=== PATIENT | female | born 1935 | race Caucasian/White ===

== ENCOUNTER 2016-04-03 04:00 | Emergency (ER) | payer MEDICARE ==
[2016-04-03] MEDS ORDERED: PANTOPRAZOLE 40MG INJ (PROTONIX) (C9113) As Ordered ONE (04:31)
[2016-04-03] MEDS ORDERED: ASPIRIN 81 MG CHEW TABLET As Ordered ONE (04:31)
[2016-04-03 04:39] LABS: BASO % 0.5 % (0.0-1.0); EOS # 0.1 K/mm3 (0.0-0.50); LARGE UNSTAINED CELL # 0.1 K/mm3 (0.0-0.4); LARGE UNSTAINED CELL % 2.1 % (0.0-4.0); LYMPH # 2.1 K/mm3 (1.5-4.5); LYMPH % 34.4 % (24.0-44.0); MEAN CORPUSCULAR HEMOGLOBIN 31.3 pg (27.0-33.0); MEAN CORPUSCULAR HGB CONC 32.9 g/dl (32.0-36.5); MEAN CORPUSCULAR VOLUME 95.1 fl (80.0-96.0); MONO # 0.3 K/mm3 (0.0-0.8); MONO % 5.8 % (0.0-5.0); NEUTROPHILS # 3.2 K/mm3 (1.8-7.7); NEUTROPHILS % 55.2 % (36.0-66.0); PLATELET COUNT, AUTOMATED 308 k/mm3 (150-450); RED CELL DISTRIBUTION WIDTH 13.1 % (11.5-14.5); WHITE BLOOD COUNT 5.8 K/mm3 (4.0-10.0)
[2016-04-03 05:09] LABS: ALBUMIN 3.5 GM/DL (3.2-5.2); ALBUMIN/GLOBULIN RATIO 1.25 (1.00-1.93); ALKALINE PHOSPHATASE 60 U/L (45-117); ALT/SGPT 20 U/L (12-78); ANION GAP 11 MEQ/L (8-16); AST/SGOT 14 U/L (15-37); BILIRUBIN,DIRECT < 0.1 MG/DL (0.0-0.2); BILIRUBIN,TOTAL 0.3 MG/DL (0.2-1.0); BLOOD UREA NITROGEN 20 MG/DL (7-18); CALCIUM LEVEL 9.2 MG/DL (8.8-10.2); CARBON DIOXIDE LEVEL 25 MEQ/L (21-32); CHLORIDE LEVEL 108 MEQ/L (98-107); CREATININE FOR GFR 0.81 MG/DL (0.55-1.02); GLOMERULAR FILTRATION RATE > 60.0 (>32); GLUCOSE, FASTING 117 MG/DL (83-110); POTASSIUM SERUM 4.1 MEQ/L (3.5-5.1); SODIUM LEVEL 144 MEQ/L (136-145); TOTAL PROTEIN 6.3 GM/DL (6.4-8.2)
--- NOTE | 2016-04-03 07:43 | REP ---
Clinical: Chest pain . Comparison: 03/30/2016 . Findings: The mediastinum and cardiac silhouette are stable and within normal limits for portable technique. The lung phan are clear without acute consolidation, effusion, or pneumothorax. Skeletal structures are intact. Impression: Normal portable chest x-ray Signed by Kalpesh Montero MD 04/03/2016 07:35 A
--- NOTE | 2016-04-03 07:43 | EDDOCDS ---
Nurse's Notes [facility] Name: Jayna Granado Age: 81 yrs Sex: Female : 1935 Arrival Date: 04/03/2016 Time: 04:00 Bed 9 Private MD: Diagnosis: Chest pain, unspecified Presentation: 04/03 04:19 Presenting complaint: Patient states: burning started a couple hours ago in upper left ko2 chest and throat area. Pt states that she fell back to sleep and when she woke up the burning was still there so she came into the ED. Pt states that she has some tingling down left arm. Aspirin was not taken prior to arrival. Suicide/Homicide risk assessment- the patient denies having any suicidal and/or homicidal ideations and does not present with any other emotional, behavioral or mental health complaints. Status: Patient is not a general service officer or dependent. Transition of care: patient was not received from another setting of care. 04:19 Acuity: LESVIA Level 3 ko2 04:19 Method Of Arrival: Walkin/Carried/Asstd ko2 04:29 Adult Sepsis Screening: The patient does not have new or worsening altered mentation. ko2 Patient's respiratory rate is less than 22. Systolic blood pressure is greater than 100. Patient has a qSOFA score of 0- Negative Sepsis Screen. Triage Assessment: 04:22 General: Appears in no apparent distress, Behavior is appropriate for age, cooperative. ko2 Pain: Location: anterior aspect of left upper chest Quality of pain is described as burning. The patient is triaged at the bedside. See Assessment in Nurses Notes section of ED record. Neurological: Level of Consciousness is awake, alert. Cardiovascular: Chest pain is described as vague, radiates to left arm(s) episodes are intermittent began 4 hours prior to arrival. Respiratory: Airway is patent Respiratory effort is even, unlabored. Derm: Skin is normal. Historical: - Allergies: No known drug Allergies; - Home Meds: 1. calcium 1 tab daily 2. levothyroxine 75 mcg oral tab 1 tab once daily 3. multivitamin Oral tab 1 tab daily 4. Vitamin D Oral 50,000 unit every 2 weeks - PMHx: Hypothyroidism; Ramos's Esophagus; - PSHx: Tonsillectomy; Hernia repair; Adenoidectomy; - The history from nurses notes was reviewed: and I agree with what is documented. - Social history: Smoking status: Patient states former smoker of tobacco. No barriers to communication noted, The patient speaks fluent Haitian, Speaks appropriately for age. - Family history: Not pertinent. - : The pt / caregiver states he / she is not on anticoagulants. Home medication list is obtained from the patient. - Hospitalizations: : No recent hospitalization is reported. - Exposure Risk Screening:: None identified. - Immunization history:: All immunizations up-to-date. - Social history:: the patient is a non-smoker, the patient does not drink alcohol. Screenin:23 Screening information is obtained from the patient. Fall risk: At risk due to age. ko2 Assistance ADL's: requires no assistance with activities of daily living. Abuse/DV Screen: The patient / caregiver reports he/she is: not in a situation that causes fear, pain or injury. Nutritional screening: No deficits noted. Advance Directives: Currently, there is a health care proxy, Pratik Granado - Son. There is an active DNR order but there is no copy available at this time. There is a living will, but a copy is not available at this time. There is no Power of Teletype Mechanic. home support is adequate. Assessment: 04:23 General: See triage assessment. ko2 05:49 General: Appears in no apparent distress, comfortable, Behavior is appropriate for age, ko2 cooperative. Pain: Denies pain. Neurological: Level of Consciousness is awake, alert. Cardiovascular: Rhythm is regular. Respiratory: Airway is patent Respiratory effort is even, unlabored. Derm: Skin is normal. 06:35 General: Appears in no apparent distress, comfortable, Behavior is appropriate for age, ko2 cooperative. Neurological: Level of Consciousness is awake, alert. Respiratory: Airway is patent Respiratory effort is even, unlabored. Derm: Skin is normal. 07:13 General: Appears report has been recvd. Pt is alert and without complaints. denies jmk discomfort. Monitor is sr without ectopy. chest CTA. abd soft and non distended with bowel sounds present x 4. sl intact. without resp distress. 07:40 General: Appears without symptoms. receptive to discharge. tolerant to activity. [facility] Vital Signs: 04:17 BP 161 / 79 (auto/); ko2 04:18 Pulse 86 MON; Pulse Ox 97% ; ko2 04:27 BP 161 / 79; Pulse 82; Resp 18; Temp 97.2(O); Pulse Ox 95% ; Weight 63.05 kg; Height 5 ko2 ft. 6 in. (167.64 cm); 04:32 BP 154 / 70 (auto/); ko2 04:32 Pulse 80 MON; Pulse Ox 95% ; ko2 04:47 BP 154 / 71 (auto/); ko2 04:48 Pulse 78 MON; Pulse Ox 96% ; ko2 05:02 BP 148 / 71 (auto/); ko2 05:02 Pulse 78 MON; Pulse Ox 95% ; ko2 05:17 BP 144 / 70 (auto/); ko2 05:17 Pulse 72 MON; Pulse Ox 95% ; ko2 05:32 BP 143 / 69 (auto/); ko2 05:33 Pulse 70 MON; Pulse Ox 95% ; ko2 05:47 BP 145 / 70 (auto/); ko2 05:47 Pulse 70 MON; Pulse Ox 96% ; ko2 06:02 BP 152 / 71 (auto/); ko2 06:02 Pulse 74 MON; Pulse Ox 96% ; ko2 06:17 BP 159 / 73 (auto/); ko2 06:17 Pulse 72 MON; Pulse Ox 97% ; ko2 06:32 BP 166 / 77 (auto/); ko2 06:33 Pulse 74 MON; Pulse Ox 98% ; ko2 07:02 BP 158 / 71 (auto/); jmk 07:03 Pulse 76 MON; Pulse Ox 96% ; jmk 07:40 BP 160 / 71; Pulse 83; Resp 16; Temp 98.0; jmk 04:27 Body Mass Index 22.43 (63.05 kg, 167.64 cm) ko2 Vitals: 04:28 Log In Time: April 03, 2016 at 04:01. ko2 ED Course: 04:01 Patient visited by Jaylyn Parra. lja 04:01 Patient moved to Waiting lja 04:05 Sagrario Guzman,ANYI is Primary Nurse. lf1 04:05 Patient moved to 9 lf1 04:12 Young Shah MD is Attending Physician. pc 04:12 Patient visited by Young Shah MD. pc 04:14 Patient visited by Kumar William. jp4 04:14 EKG done. (by ED staff). Reviewed by Young Shah MD. jp4 04:20 Triage Initiated ko2 04:20 Inserted saline lock: 20 gauge in right forearm and blood collected. The patient ko2 tolerated the procedure well. 04:28 The patient / caregiver is instructed regarding the plan of care and ED course. Cardiac ko2 monitor on. Pulse ox on. NIBP on. 04:28 Lipase Sent. cf2 04:28 Liver Profile Sent. cf2 04:28 Basic Metabolic Profile Sent. cf2 04:28 CBC with Diff Sent. cf2 04:28 Cardiac Injury Profile Sent. cf2 04:28 Troponin Sent. cf2 05:18 Patient visited by Sagrario Guzman,ANYI. ko2 06:07 Primary Nurse role handed off by Sagrario Guzman RN cf2 06:07 Raiza Spain,ANYI is Primary Nurse. cf2 06:07 Patient visited by Raiza Spain,ANYI. cf2 06:28 Patient visited by Susannah Royal PCA. jorge 06:28 EKG done. (by ED staff). Reviewed by Young Shah MD. jorge 06:35 CARDIAC MARKER PANEL Sent. pawan 06:36 Patient visited by Sagrario Guzman RN. ko2 07:01 Attending Physician role handed off by Young Shah MD sd1 07:01 Corin Calderon MD is Attending Physician. sd1 07:12 Attending Physician role handed off by Corin Calderon MD pc 07:12 Young Shah MD is Attending Physician. pc 07:15 Patient visited by Олег Ramesh,ANYI. jmk 07:17 Uri Sultana MD is Referral Physician. pc 07:40 Discontinued lock intact, bleeding controlled, pressure dressing applied, No jmk redness/swelling at site. No procedures done that require assistance. Administered Medications: 04:39 Drug: Aspirin 324 mg [aspirin 81 mg chewable tablet (4 tabs)] Route: PO; ko2 04:39 Drug: pantoprazole 40 mg [pantoprazole 40 mg intravenous solution] Route: IV; Rate: ko2 bolus; Site: right antecubital; Order Results: Lab Order: Basic Metabolic Profile; SPEC'M 04/03/16 04:27 Test: GLUCOSE, FASTING; Value: 117; Range: 83-110; Abnormal: Above high normal; Units: MG/DL; Status: F Test: BLOOD UREA NITROGEN; Value: 20; Range: 7-18; Abnormal: Above high normal; Units: MG/DL; Status: F Test: CREATININE FOR GFR; Value: 0.81; Range: 0.55-1.02; Units: MG/DL; Status: F Test: GLOMERULAR FILTRATION RATE; Value: > 60.0; Range: >32; Status: F Test: SODIUM LEVEL; Value: 144; Range: 136-145; Units: MEQ/L; Status: F Test: POTASSIUM SERUM; Value: 4.1; Range: 3.5-5.1; Units: MEQ/L; Status: F Test: CHLORIDE LEVEL; Value: 108; Range: 98-107; Abnormal: Above high normal; Units: MEQ/L; Status: F Test: CARBON DIOXIDE LEVEL; Value: 25; Range: 21-32; Units: MEQ/L; Status: F Test: ANION GAP; Value: 11; Range: 8-16; Units: MEQ/L; Status: F Test: CALCIUM LEVEL; Value: 9.2; Range: 8.8-10.2; Units: MG/DL; Status: F Test Note: ; Units are mL/min/1.73 m2 Chronic Kidney Disease Staging per NKF: Stage I & II GFR >=60 Normal to Mildly Decreased Stage III GFR 30-59 Moderately Decreased Stage IV GFR 15-29 Severely Decreased Stage V GFR <15 Very Little GFR Left ESRD GFR <15 on DIRECTOR OF EVENT MARKETING Lab Order: CBC with Diff; SPEC'M 04/03/16 04:27 Test: WHITE BLOOD COUNT; Value: 5.8; Range: 4.0-10.0; Units: K/mm3; Status: F Test: RED BLOOD COUNT; Value: 4.39; Range: 4.00-5.40; Units: M/mm3; Status: F Test: HEMOGLOBIN; Value: 13.7; Range: 12.0-16.0; Units: g/dl; Status: F Test: HEMATOCRIT; Value: 41.7; Range: 36.0-47.0; Units: %; Status: F Test: MEAN CORPUSCULAR VOLUME; Value: 95.1; Range: 80.0-96.0; Units: fl; Status: F Test: MEAN CORPUSCULAR HEMOGLOBIN; Value: 31.3; Range: 27.0-33.0; Units: pg; Status: F Test: MEAN CORPUSCULAR HGB CONC; Value: 32.9; Range: 32.0-36.5; Units: g/dl; Status: F Test: RED CELL DISTRIBUTION WIDTH; Value: 13.1; Range: 11.5-14.5; Units: %; Status: F Test: PLATELET COUNT, AUTOMATED; Value: 308; Range: 150-450; Units: k/mm3; Status: F Test: NEUTROPHILS %; Value: 55.2; Range: 36.0-66.0; Units: %; Status: F Test: LYMPH %; Value: 34.4; Range: 24.0-44.0; Units: %; Status: F Test: MONO %; Value: 5.8; Range: 0.0-5.0; Abnormal: Above high normal; Units: %; Status: F Test: EOS %; Value: 2.0; Range: 0.0-3.0; Units: %; Status: F Test: BASO %; Value: 0.5; Range: 0.0-1.0; Units: %; Status: F Test: LARGE UNSTAINED CELL %; Value: 2.1; Range: 0.0-4.0; Units: %; Status: F Test: NEUTROPHILS #; Value: 3.2; Range: 1.8-7.7; Units: K/mm3; Status: F Test: LYMPH #; Value: 2.1; Range: 1.5-4.5; Units: K/mm3; Status: F Test: MONO #; Value: 0.3; Range: 0.0-0.8; Units: K/mm3; Status: F Test: EOS #; Value: 0.1; Range: 0.0-0.50; Units: K/mm3; Status: F Test: BASO #; Value: 0.0; Range: 0.0-0.2; Units: K/mm3; Status: F Test: LARGE UNSTAINED CELL #; Value: 0.1; Range: 0.0-0.4; Units: K/mm3; Status: F Lab Order: Cardiac Injury Profile; SPEC'M 04/03/16 04:27 Test: CPK CREATINE PHOSPHOKINASE; Value: 47; Range: 26-192; Units: U/L; Status: F Test: CK-MB VALUE MASS; Value: 2.0; Range: 0.0-3.6; Units: NG/ML; Status: F Test: MB/CK RELATIVE INDEX; Value: 4.25; Range: < OR =4; Abnormal: Above high normal; Status: F Test Note: ; DIAGNOSIS CRITERIA MMB ng/ml Relative Index (RI) NON-AMI < or = 5 N/A [place]ER [place]ONE > 5 < or = 4 AMI > 5 > 4 Lab Order: Troponin; SPEC'M 04/03/16 04:27 Test: TROPONIN I; Value: < 0.02; Range: < 0.10; Units: NG/ML; Status: F Test Note: ; Troponin I Reference Interval for [employer] LOCI: 99th Percentile= 0.00-0.045 ng/ml Risk Stratification: <= 0.10 ng/ml Decreased Risk for Adverse Clinical Events. 0.10-1.50 ng/ml Increased Risk for Adverse Clinical Events. Evaluation of additional criterion and/or repeat testing in 2-6 hours is suggested to rule out myocardial damage. >= 1.50 ng/ml Indicative of Myocardial Injury. Lab Order: Liver Profile; SPEC'M 04/03/16 04:27 Test: AST/SGOT; Value: 14; Range: 15-37; Abnormal: Below low normal; Units: U/L; Status: F Test: ALT/SGPT; Value: 20; Range: 12-78; Units: U/L; Status: F Test: ALKALINE PHOSPHATASE; Value: 60; Range: 45-117; Units: U/L; Status: F Test: BILIRUBIN,TOTAL; Value: 0.3; Range: 0.2-1.0; Units: MG/DL; Status: F Test: BILIRUBIN,DIRECT; Value: < 0.1; Range: 0.0-0.2; Units: MG/DL; Status: F Test: TOTAL PROTEIN; Value: 6.3; Range: 6.4-8.2; Abnormal: Below low normal; Units: GM/DL; Status: F Test: ALBUMIN; Value: 3.5; Range: 3.2-5.2; Units: GM/DL; Status: F Test: ALBUMIN/GLOBULIN RATIO; Value: 1.25; Range: 1.00-1.93; Status: F Lab Order: Lipase; SPEC'M 04/03/16 04:27 Test: LIPASE; Value: 197; Range: 73-393; Units: U/L; Status: F Lab Order: CARDIAC MARKER PANEL; SPEC'M 04/03/16 06:37 Test: CPK CREATINE PHOSPHOKINASE; Value: 38; Range: 26-192; Units: U/L; Status: F Test: CK-MB VALUE MASS; Value: 1.8; Range: 0.0-3.6; Units: NG/ML; Status: F Test: MB/CK RELATIVE INDEX; Value: 4.73; Range: < OR =4; Abnormal: Above high normal; Status: F Test: TROPONIN I; Value: < 0.02; Range: < 0.10; Units: NG/ML; Status: F Test Note: ; DIAGNOSIS CRITERIA MMB ng/ml Relative Index (RI) NON-AMI < or = 5 N/A T[place]ER [place]ONE > 5 < or = 4 AMI > 5 > 4 Outcome: 07:17 Discharge ordered by Provider. pc 07:40 Discharge Assessment: Patient awake, alert and oriented x 3. No cognitive and/or k functional deficits noted. Patient verbalized understanding of disposition instructions. patient administered narcotics - no. The following High Risk Discharge criteria are identified: None. Discharged to home ambulatory. Condition: good. Discharge instructions given to patient, Instructed on discharge instructions, follow up and referral plans. medication usage, Demonstrated understanding of instructions, medications, Pt was receptive of discharge instructions/ teaching. No special radiology studies were completed. Property :Personal belongings accompany Pt. 07:42 Patient left the ED. k Signatures: Young Shah MD MD pc Delaney-Rowland, Sarah, MD MD sd1 Олег Ramesh,RN RN Nica Soto,RN Jaylyn Velasco cas,RN RN lf1 Susannah Royal, MANAGER DECISION SUPPORT MANAGER DECISION SUPPORT jorge Stewart, Kumar jp4 Sagrario GuzmanRN RN ko2 Jaylyn Parra ChristinaRN RN cf2 MTDD
--- NOTE | 2016-04-03 07:43 | EDDOCDS ---
Physician Documentation [facility] Name: Jayna Granado Age: 81 yrs Sex: Female : 1935 Arrival Date: 04/03/2016 Time: 04:00 Bed 9 Private MD: Disposition: 04/03 07:16 Critical Care: Critical care not applicable. pc Disposition: 04/03/16 07:17 Discharged to Home/Self Care. Impression: Chest pain, unspecified. - Condition is Stable. - Discharge Instructions: Nonspecific Chest Pain. - Medication Reconciliation, Local Pharmacy Hours form. - Follow up: Uri Sultana MD; When: Today, as previously scheduled ; Reason: Further diagnostic work-up, Recheck today's complaints, To establish care. - Problem is new. - Symptoms have improved. HPI: 04:25 This 81 yrs old Female presents to ER via Walkin/Carried/Asstd with pc complaints of Chest Pain. 04:25 The history is obtained from the patient, the patient's family/friend. Symptoms began pc suddenly 2.5 hr. ago, She had an episode of suddenly not feeling well while visiting her spouse at [facility] 4 days ago. She was nauseated, felt weak and diaphoretic. She was seen in the ED and had ACS ruled out. She was scheduled to see Dr. Sultana today at 8am. She had a few episodes yesterday throughout the day and called her PCP but could not get an appointment. She went to bed last night and awoke an hour later with pain in her upper chest, radiating into her throat, leaving her with a bad taste in her mouth. 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 . She has had GERD for many years, with Ramos's Esophagus diagnosed in 1998 and severe chronic gastritis on biopsy. A repeat EGD in 2004 had normal biopsies, and she has stopped taken her PPI for many years "because I'm fine". Historical: - Allergies: No known drug Allergies; - Home Meds: 1. calcium 1 tab daily 2. levothyroxine 75 mcg oral tab 1 tab once daily 3. multivitamin Oral tab 1 tab daily 4. Vitamin D Oral 50,000 unit every 2 weeks - PMHx: Hypothyroidism; Ramos's Esophagus; - PSHx: Tonsillectomy; Hernia repair; Adenoidectomy; - The history from nurses notes was reviewed: and I agree with what is documented. - Social history: Smoking status: Patient states former smoker of tobacco. No barriers to communication noted, The patient speaks fluent Rwandan, Speaks appropriately for age. - Family history: Not pertinent. - : The pt / caregiver states he / she is not on anticoagulants. Home medication list is obtained from the patient. - Hospitalizations: : No recent hospitalization is reported. - Exposure Risk Screening:: None identified. - Immunization history:: All immunizations up-to-date. - Social history:: the patient is a non-smoker, the patient does not drink alcohol. ROS: 04:25 All systems are negative except as listed. The cardiovascular, respiratory, pc gastrointestinal and neurological components are also addressed in the HPI. Exam: 04:25 General Appearance: alert, no acute distress. pc 04:25 ENT: ear, nose and throat normal, pharynx normal. 04:25 Neck: supple, non-tender, no masses are appreciated. 04:25 Respiratory: no respiratory distress, normal breath sounds. 04:25 Cardiovascular: regular pulse rate, regular heart rhythm, normal heart sounds, equal and full pulses bilaterally. 04:25 Abdomen: soft, non-tender, no organomegaly, normal bowel sounds. 04:25 Skin: skin color is normal, warm, dry. 04:25 Extremities: The extremities have a grossly normal appearance, are non-tender, without acute ROM abnormalities, no pedal edema. 04:25 Neuro: alert, oriented to person, place and time, cranial nerves normal as tested, no motor deficits, no sensory deficits. 04:25 Psych: normal mood. Vital Signs: 04:17 BP 161 / 79 (auto/); ko2 04:18 Pulse 86 MON; Pulse Ox 97% ; ko2 04:27 BP 161 / 79; Pulse 82; Resp 18; Temp 97.2(O); Pulse Ox 95% ; Weight 63.05 kg / 139 lbs; ko2 Height 5 ft. 6 in. (167.64 cm); 04:32 BP 154 / 70 (auto/); ko2 04:32 Pulse 80 MON; Pulse Ox 95% ; ko2 04:47 BP 154 / 71 (auto/); ko2 04:48 Pulse 78 MON; Pulse Ox 96% ; ko2 05:02 BP 148 / 71 (auto/); ko2 05:02 Pulse 78 MON; Pulse Ox 95% ; ko2 05:17 BP 144 / 70 (auto/); ko2 05:17 Pulse 72 MON; Pulse Ox 95% ; ko2 05:32 BP 143 / 69 (auto/); ko2 05:33 Pulse 70 MON; Pulse Ox 95% ; ko2 05:47 BP 145 / 70 (auto/); ko2 05:47 Pulse 70 MON; Pulse Ox 96% ; ko2 06:02 BP 152 / 71 (auto/); ko2 06:02 Pulse 74 MON; Pulse Ox 96% ; ko2 06:17 BP 159 / 73 (auto/); ko2 06:17 Pulse 72 MON; Pulse Ox 97% ; ko2 06:32 BP 166 / 77 (auto/); ko2 06:33 Pulse 74 MON; Pulse Ox 98% ; ko2 07:02 BP 158 / 71 (auto/); jmk 07:03 Pulse 76 MON; Pulse Ox 96% ; jmk 07:40 BP 160 / 71; Pulse 83; Resp 16; Temp 98.0; jmk 04:27 Body Mass Index 22.43 (63.05 kg, 167.64 cm) ko2 MDM: 04:08 ECG WITH READING ER PHYS+CARDIAG ordered. EDMS 04:25 Aspirin Chewable Tablet 324 mg PO once ordered. pc 04:25 pantoprazole 40 mg IV at bolus once ordered. pc 04:25 Screen Printing Supervisor/Pulse Ox/q 30 min VS ordered. pc 04:25 IV Saline Lock ordered. pc 04:25 Rhythm Strip to chart ordered. pc 04:25 Basic Metabolic Profile Ordered. EDMS 04:25 CBC with Diff Ordered. EDMS 04:25 Differential diagnosis: acute myocardial infarction, esophagitis, gastroesophageal pc reflux disease (GERD), pancreatitis, unstable angina. Plan: labs, EKG, CXR, meds. The patient was medicated with aspirin in the Emergency Department. Test interpretation: EKG. 04:26 Cardiac Injury Profile Ordered. EDMS 04:26 Troponin Ordered. EDMS 04:26 Liver Profile Ordered. EDMS 04:26 Lipase Ordered. EDMS 04:27 portable chest Ordered. EDMS 05:01 CBC with Diff Reviewed. pc 05:18 Basic Metabolic Profile Reviewed. pc 05:18 Cardiac Injury Profile Reviewed. pc 05:18 Liver Profile Reviewed. pc 05:18 Troponin Reviewed. pc 05:18 Lipase Reviewed. pc 05:20 Repeat EKG (put time details section) ordered. pc 05:20 Redraw CIP &Troponin (put time in details section) ordered. pc 05:21 Redraw CIP &Troponin (put time in details section) complete. ml3 05:21 Repeat EKG (put time details section) complete. ml3 05:22 ECG WITH READING ER PHYS ordered. EDMS 05:22 CARDIAC MARKER PANEL Ordered. EDMS 06:30 Test interpretation: EKG. pc 07:12 Data reviewed: old medical records, vital signs, nurses notes, EKG(s), lab test pc results, all radiology studies and available results. Test interpretation: LAB - all labs as ordered have been reviewed, interpreted and considered in the overall management of the clinical presentation; X-RAY -. 07:16 CARDIAC MARKER PANEL Reviewed. pc 07:16 The patient has been re-examined and re-evaluated. The patient's symptoms have markedly pc improved after treatment. Disposition: The historical points, examination findings, and any diagnostic results supporting the provided diagnosis, were discussed with the patient or legal guardian. The need for outpatient follow up with the provider listed on their discharge instructions was discussed. They were encouraged to return to [facility], or the nearest ED, if symptoms worsen/persist, or for any other questions/concerns. EC:25 Rate is 87 beats/min. Rhythm is regular, Normal Sinus Rhythm. Left axis deviation pc noted. QRS is negative in leads II, aVF. AK interval is normal. QRS interval is normal. QT interval is normal. No Q waves. T waves are Normal. No ST changes noted. Clinical impression: Normal Sinus Rhythm and Possible LAE, LAD, LVH by voltage. No change from previous ECG on March 30, 2016. 06:30 Rate is 72 beats/min. Rhythm is regular. QRS [place] is Normal. AK interval is normal. QRS pc interval is normal. QT interval is normal. No Q waves. T waves are Normal. No ST changes noted. Clinical impression: Normal Sinus Rhythm and LVH. Administered Medications: 04:39 Drug: Aspirin 324 mg [aspirin 81 mg chewable tablet (4 tabs)] Route: PO; ko2 04:39 Drug: pantoprazole 40 mg [pantoprazole 40 mg intravenous solution] Route: IV; Rate: ko2 bolus; Site: right antecubital; Signatures: Dispatcher [employer] Young Kim MD MD pc Knapp, JeanRN RN Majo Marie, Housekeeping Cleaner Unit ml3 Sagrario Guzman RN RN ko2 [facility]
--- NOTE | 2016-04-03 19:54 | ECGEPIP ---
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
--- NOTE | 2016-04-03 19:55 | ECGEPIP ---
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
--- NOTE | 2016-04-05 08:43 | EDDOCDS ---
Physician Documentation [facility] Name: Jayna Granado Age: 81 yrs Sex: Female : 1935 Arrival Date: 04/03/2016 Time: 04:00 Bed 9 Private MD: Disposition: 04/03 07:16 Critical Care: Critical care not applicable. pc Disposition: 04/03/16 07:17 Discharged to Home/Self Care. Impression: Chest pain, unspecified. - Condition is Stable. - Discharge Instructions: Nonspecific Chest Pain. - Medication Reconciliation, Local Pharmacy Hours form. - Follow up: Uri Sultana MD; When: Today, as previously scheduled ; Reason: Further diagnostic work-up, Recheck today's complaints, To establish care. - Problem is new. - Symptoms have improved. HPI: 04:25 This 81 yrs old Female presents to ER via Walkin/Carried/Asstd with pc complaints of Chest Pain. 04:25 The history is obtained from the patient, the patient's family/friend. Symptoms began pc suddenly 2.5 hr. ago, She had an episode of suddenly not feeling well while visiting her spouse at [facility] 4 days ago. She was nauseated, felt weak and diaphoretic. She was seen in the ED and had ACS ruled out. She was scheduled to see Dr. Sultana today at 8am. She had a few episodes yesterday throughout the day and called her PCP but could not get an appointment. She went to bed last night and awoke an hour later with pain in her upper chest, radiating into her throat, leaving her with a bad taste in her mouth. 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 . She has had GERD for many years, with Ramos's Esophagus diagnosed in 1998 and severe chronic gastritis on biopsy. A repeat EGD in 2004 had normal biopsies, and she has stopped taken her PPI for many years "because I'm fine". Historical: - Allergies: No known drug Allergies; - Home Meds: 1. calcium 1 tab daily 2. levothyroxine 75 mcg oral tab 1 tab once daily 3. multivitamin Oral tab 1 tab daily 4. Vitamin D Oral 50,000 unit every 2 weeks - PMHx: Hypothyroidism; Ramos's Esophagus; - PSHx: Tonsillectomy; Hernia repair; Adenoidectomy; - The history from nurses notes was reviewed: and I agree with what is documented. - Social history: Smoking status: Patient states former smoker of tobacco. No barriers to communication noted, The patient speaks fluent Indonesian, Speaks appropriately for age. - Family history: Not pertinent. - : The pt / caregiver states he / she is not on anticoagulants. Home medication list is obtained from the patient. - Hospitalizations: : No recent hospitalization is reported. - Exposure Risk Screening:: None identified. - Immunization history:: All immunizations up-to-date. - Social history:: the patient is a non-smoker, the patient does not drink alcohol. ROS: 04:25 All systems are negative except as listed. The cardiovascular, respiratory, pc gastrointestinal and neurological components are also addressed in the HPI. Exam: 04:25 General Appearance: alert, no acute distress. pc 04:25 ENT: ear, nose and throat normal, pharynx normal. 04:25 Neck: supple, non-tender, no masses are appreciated. 04:25 Respiratory: no respiratory distress, normal breath sounds. 04:25 Cardiovascular: regular pulse rate, regular heart rhythm, normal heart sounds, equal and full pulses bilaterally. 04:25 Abdomen: soft, non-tender, no organomegaly, normal bowel sounds. 04:25 Skin: skin color is normal, warm, dry. 04:25 Extremities: The extremities have a grossly normal appearance, are non-tender, without acute ROM abnormalities, no pedal edema. 04:25 Neuro: alert, oriented to person, place and time, cranial nerves normal as tested, no motor deficits, no sensory deficits. 04:25 Psych: normal mood. Vital Signs: 04:17 BP 161 / 79 (auto/); ko2 04:18 Pulse 86 MON; Pulse Ox 97% ; ko2 04:27 BP 161 / 79; Pulse 82; Resp 18; Temp 97.2(O); Pulse Ox 95% ; Weight 63.05 kg / 139 lbs; ko2 Height 5 ft. 6 in. (167.64 cm); 04:32 BP 154 / 70 (auto/); ko2 04:32 Pulse 80 MON; Pulse Ox 95% ; ko2 04:47 BP 154 / 71 (auto/); ko2 04:48 Pulse 78 MON; Pulse Ox 96% ; ko2 05:02 BP 148 / 71 (auto/); ko2 05:02 Pulse 78 MON; Pulse Ox 95% ; ko2 05:17 BP 144 / 70 (auto/); ko2 05:17 Pulse 72 MON; Pulse Ox 95% ; ko2 05:32 BP 143 / 69 (auto/); ko2 05:33 Pulse 70 MON; Pulse Ox 95% ; ko2 05:47 BP 145 / 70 (auto/); ko2 05:47 Pulse 70 MON; Pulse Ox 96% ; ko2 06:02 BP 152 / 71 (auto/); ko2 06:02 Pulse 74 MON; Pulse Ox 96% ; ko2 06:17 BP 159 / 73 (auto/); ko2 06:17 Pulse 72 MON; Pulse Ox 97% ; ko2 06:32 BP 166 / 77 (auto/); ko2 06:33 Pulse 74 MON; Pulse Ox 98% ; ko2 07:02 BP 158 / 71 (auto/); jmk 07:03 Pulse 76 MON; Pulse Ox 96% ; jmk 07:40 BP 160 / 71; Pulse 83; Resp 16; Temp 98.0; jmk 04:27 Body Mass Index 22.43 (63.05 kg, 167.64 cm) ko2 MDM: 04:08 ECG WITH READING ER PHYS+CARDIAG ordered. EDMS 04:25 Aspirin Chewable Tablet 324 mg PO once ordered. pc 04:25 pantoprazole 40 mg IV at bolus once ordered. pc 04:25 Environmental Lead/Pulse Ox/q 30 min VS ordered. pc 04:25 IV Saline Lock ordered. pc 04:25 Rhythm Strip to chart ordered. pc 04:25 Basic Metabolic Profile Ordered. EDMS 04:25 CBC with Diff Ordered. EDMS 04:25 Differential diagnosis: acute myocardial infarction, esophagitis, gastroesophageal pc reflux disease (GERD), pancreatitis, unstable angina. Plan: labs, EKG, CXR, meds. The patient was medicated with aspirin in the Emergency Department. Test interpretation: EKG. 04:26 Cardiac Injury Profile Ordered. EDMS 04:26 Troponin Ordered. EDMS 04:26 Liver Profile Ordered. EDMS 04:26 Lipase Ordered. EDMS 04:27 portable chest Ordered. EDMS 05:01 CBC with Diff Reviewed. pc 05:18 Basic Metabolic Profile Reviewed. pc 05:18 Cardiac Injury Profile Reviewed. pc 05:18 Liver Profile Reviewed. pc 05:18 Troponin Reviewed. pc 05:18 Lipase Reviewed. pc 05:20 Repeat EKG (put time details section) ordered. pc 05:20 Redraw CIP &Troponin (put time in details section) ordered. pc 05:21 Redraw CIP &Troponin (put time in details section) complete. ml3 05:21 Repeat EKG (put time details section) complete. ml3 05:22 ECG WITH READING ER PHYS ordered. EDMS 05:22 CARDIAC MARKER PANEL Ordered. EDMS 06:30 Test interpretation: EKG. pc 07:12 Data reviewed: old medical records, vital signs, nurses notes, EKG(s), lab test pc results, all radiology studies and available results. Test interpretation: LAB - all labs as ordered have been reviewed, interpreted and considered in the overall management of the clinical presentation; X-RAY -. 07:16 CARDIAC MARKER PANEL Reviewed. pc 07:16 The patient has been re-examined and re-evaluated. The patient's symptoms have markedly pc improved after treatment. Disposition: The historical points, examination findings, and any diagnostic results supporting the provided diagnosis, were discussed with the patient or legal guardian. The need for outpatient follow up with the provider listed on their discharge instructions was discussed. They were encouraged to return to [facility], or the nearest ED, if symptoms worsen/persist, or for any other questions/concerns. 08:10 Financial registration complete. mm15 08:11 [facility] [place] Payment Agreement was scanned into [employer] and attached to record. mm15 14:46 ECG/EKG was scanned into [employer] and attached to record. gb 14:46 Trend VS was scanned into [employer] and attached to record. gb EC:25 Rate is 87 beats/min. Rhythm is regular, Normal Sinus Rhythm. Left axis deviation pc noted. QRS is negative in leads II, aVF. AL interval is normal. QRS interval is normal. QT interval is normal. No Q waves. T waves are Normal. No ST changes noted. Clinical impression: Normal Sinus Rhythm and Possible LAE, LAD, LVH by voltage. No change from previous ECG on March 30, 2016. 06:30 Rate is 72 beats/min. Rhythm is regular. QRS [place] is Normal. AL interval is normal. QRS pc interval is normal. QT interval is normal. No Q waves. T waves are Normal. No ST changes noted. Clinical impression: Normal Sinus Rhythm and LVH. Administered Medications: 04:39 Drug: Aspirin 324 mg [aspirin 81 mg chewable tablet (4 tabs)] Route: PO; ko2 04:39 Drug: pantoprazole 40 mg [pantoprazole 40 mg intravenous solution] Route: IV; Rate: ko2 bolus; Site: right antecubital; Signatures: Dispatcher [employer] EDYoung Shearer MD MD pc Knapp, Jean, RN RN Kelsey Sanchez, Reg Reg gb Majo Castillo, Shingle Catcher Unit ml3 Ilsa Rosado mm15 Sagrario Guzman RN RN ko2 The chart was reviewed and I authenticate all verbal orders and agree with the evaluation and treatment provided.Attachments: 08:11 [facility] Payment Agreement mm15 14:46 ECG/EKG gb Chart Complete MTDD
--- NOTE | 2016-04-05 08:43 | EDDOCDS ---
Physician Documentation [facility] Name: Jayna Granado Age: 81 yrs Sex: Female : 1935 Arrival Date: 04/03/2016 Time: 04:00 Bed 9 Private MD: Disposition: 04/03 07:16 Critical Care: Critical care not applicable. pc Disposition: 04/03/16 07:17 Discharged to Home/Self Care. Impression: Chest pain, unspecified. - Condition is Stable. - Discharge Instructions: Nonspecific Chest Pain. - Medication Reconciliation, Local Pharmacy Hours form. - Follow up: Uri Sultana MD; When: Today, as previously scheduled ; Reason: Further diagnostic work-up, Recheck today's complaints, To establish care. - Problem is new. - Symptoms have improved. HPI: 04:25 This 81 yrs old Female presents to ER via Walkin/Carried/Asstd with pc complaints of Chest Pain. 04:25 The history is obtained from the patient, the patient's family/friend. Symptoms began pc suddenly 2.5 hr. ago, She had an episode of suddenly not feeling well while visiting her spouse at [facility] 4 days ago. She was nauseated, felt weak and diaphoretic. She was seen in the ED and had ACS ruled out. She was scheduled to see Dr. Sultana today at 8am. She had a few episodes yesterday throughout the day and called her PCP but could not get an appointment. She went to bed last night and awoke an hour later with pain in her upper chest, radiating into her throat, leaving her with a bad taste in her mouth. 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 . She has had GERD for many years, with Ramos's Esophagus diagnosed in 1998 and severe chronic gastritis on biopsy. A repeat EGD in 2004 had normal biopsies, and she has stopped taken her PPI for many years "because I'm fine". Historical: - Allergies: No known drug Allergies; - Home Meds: 1. calcium 1 tab daily 2. levothyroxine 75 mcg oral tab 1 tab once daily 3. multivitamin Oral tab 1 tab daily 4. Vitamin D Oral 50,000 unit every 2 weeks - PMHx: Hypothyroidism; Ramos's Esophagus; - PSHx: Tonsillectomy; Hernia repair; Adenoidectomy; - The history from nurses notes was reviewed: and I agree with what is documented. - Social history: Smoking status: Patient states former smoker of tobacco. No barriers to communication noted, The patient speaks fluent Nepali, Speaks appropriately for age. - Family history: Not pertinent. - : The pt / caregiver states he / she is not on anticoagulants. Home medication list is obtained from the patient. - Hospitalizations: : No recent hospitalization is reported. - Exposure Risk Screening:: None identified. - Immunization history:: All immunizations up-to-date. - Social history:: the patient is a non-smoker, the patient does not drink alcohol. ROS: 04:25 All systems are negative except as listed. The cardiovascular, respiratory, pc gastrointestinal and neurological components are also addressed in the HPI. Exam: 04:25 General Appearance: alert, no acute distress. pc 04:25 ENT: ear, nose and throat normal, pharynx normal. 04:25 Neck: supple, non-tender, no masses are appreciated. 04:25 Respiratory: no respiratory distress, normal breath sounds. 04:25 Cardiovascular: regular pulse rate, regular heart rhythm, normal heart sounds, equal and full pulses bilaterally. 04:25 Abdomen: soft, non-tender, no organomegaly, normal bowel sounds. 04:25 Skin: skin color is normal, warm, dry. 04:25 Extremities: The extremities have a grossly normal appearance, are non-tender, without acute ROM abnormalities, no pedal edema. 04:25 Neuro: alert, oriented to person, place and time, cranial nerves normal as tested, no motor deficits, no sensory deficits. 04:25 Psych: normal mood. Vital Signs: 04:17 BP 161 / 79 (auto/); ko2 04:18 Pulse 86 MON; Pulse Ox 97% ; ko2 04:27 BP 161 / 79; Pulse 82; Resp 18; Temp 97.2(O); Pulse Ox 95% ; Weight 63.05 kg / 139 lbs; ko2 Height 5 ft. 6 in. (167.64 cm); 04:32 BP 154 / 70 (auto/); ko2 04:32 Pulse 80 MON; Pulse Ox 95% ; ko2 04:47 BP 154 / 71 (auto/); ko2 04:48 Pulse 78 MON; Pulse Ox 96% ; ko2 05:02 BP 148 / 71 (auto/); ko2 05:02 Pulse 78 MON; Pulse Ox 95% ; ko2 05:17 BP 144 / 70 (auto/); ko2 05:17 Pulse 72 MON; Pulse Ox 95% ; ko2 05:32 BP 143 / 69 (auto/); ko2 05:33 Pulse 70 MON; Pulse Ox 95% ; ko2 05:47 BP 145 / 70 (auto/); ko2 05:47 Pulse 70 MON; Pulse Ox 96% ; ko2 06:02 BP 152 / 71 (auto/); ko2 06:02 Pulse 74 MON; Pulse Ox 96% ; ko2 06:17 BP 159 / 73 (auto/); ko2 06:17 Pulse 72 MON; Pulse Ox 97% ; ko2 06:32 BP 166 / 77 (auto/); ko2 06:33 Pulse 74 MON; Pulse Ox 98% ; ko2 07:02 BP 158 / 71 (auto/); jmk 07:03 Pulse 76 MON; Pulse Ox 96% ; jmk 07:40 BP 160 / 71; Pulse 83; Resp 16; Temp 98.0; jmk 04:27 Body Mass Index 22.43 (63.05 kg, 167.64 cm) ko2 MDM: 04:08 ECG WITH READING ER PHYS+CARDIAG ordered. EDMS 04:25 Aspirin Chewable Tablet 324 mg PO once ordered. pc 04:25 pantoprazole 40 mg IV at bolus once ordered. pc 04:25 Sand Bobber/Pulse Ox/q 30 min VS ordered. pc 04:25 IV Saline Lock ordered. pc 04:25 Rhythm Strip to chart ordered. pc 04:25 Basic Metabolic Profile Ordered. EDMS 04:25 CBC with Diff Ordered. EDMS 04:25 Differential diagnosis: acute myocardial infarction, esophagitis, gastroesophageal pc reflux disease (GERD), pancreatitis, unstable angina. Plan: labs, EKG, CXR, meds. The patient was medicated with aspirin in the Emergency Department. Test interpretation: EKG. 04:26 Cardiac Injury Profile Ordered. EDMS 04:26 Troponin Ordered. EDMS 04:26 Liver Profile Ordered. EDMS 04:26 Lipase Ordered. EDMS 04:27 portable chest Ordered. EDMS 05:01 CBC with Diff Reviewed. pc 05:18 Basic Metabolic Profile Reviewed. pc 05:18 Cardiac Injury Profile Reviewed. pc 05:18 Liver Profile Reviewed. pc 05:18 Troponin Reviewed. pc 05:18 Lipase Reviewed. pc 05:20 Repeat EKG (put time details section) ordered. pc 05:20 Redraw CIP &Troponin (put time in details section) ordered. pc 05:21 Redraw CIP &Troponin (put time in details section) complete. ml3 05:21 Repeat EKG (put time details section) complete. ml3 05:22 ECG WITH READING ER PHYS ordered. EDMS 05:22 CARDIAC MARKER PANEL Ordered. EDMS 06:30 Test interpretation: EKG. pc 07:12 Data reviewed: old medical records, vital signs, nurses notes, EKG(s), lab test pc results, all radiology studies and available results. Test interpretation: LAB - all labs as ordered have been reviewed, interpreted and considered in the overall management of the clinical presentation; X-RAY -. 07:16 CARDIAC MARKER PANEL Reviewed. pc 07:16 The patient has been re-examined and re-evaluated. The patient's symptoms have markedly pc improved after treatment. Disposition: The historical points, examination findings, and any diagnostic results supporting the provided diagnosis, were discussed with the patient or legal guardian. The need for outpatient follow up with the provider listed on their discharge instructions was discussed. They were encouraged to return to [facility], or the nearest ED, if symptoms worsen/persist, or for any other questions/concerns. 08:10 Financial registration complete. mm15 08:11 [facility] [place] Payment Agreement was scanned into [employer] and attached to record. mm15 14:46 ECG/EKG was scanned into [employer] and attached to record. gb 14:46 Trend VS was scanned into [employer] and attached to record. gb EC:25 Rate is 87 beats/min. Rhythm is regular, Normal Sinus Rhythm. Left axis deviation pc noted. QRS is negative in leads II, aVF. NH interval is normal. QRS interval is normal. QT interval is normal. No Q waves. T waves are Normal. No ST changes noted. Clinical impression: Normal Sinus Rhythm and Possible LAE, LAD, LVH by voltage. No change from previous ECG on March 30, 2016. 06:30 Rate is 72 beats/min. Rhythm is regular. QRS [place] is Normal. NH interval is normal. QRS pc interval is normal. QT interval is normal. No Q waves. T waves are Normal. No ST changes noted. Clinical impression: Normal Sinus Rhythm and LVH. Administered Medications: 04:39 Drug: Aspirin 324 mg [aspirin 81 mg chewable tablet (4 tabs)] Route: PO; ko2 04:39 Drug: pantoprazole 40 mg [pantoprazole 40 mg intravenous solution] Route: IV; Rate: ko2 bolus; Site: right antecubital; Signatures: Dispatcher [employer] EDYoung Shearer MD MD pc Knapp, Jean, RN RN Kelsey Sanchez, Reg Reg gb Majo Castillo, Terrazzo Mechanic Helper Unit ml3 Ilsa Rosado mm15 Sagrario Guzman RN RN ko2 The chart was reviewed and I authenticate all verbal orders and agree with the evaluation and treatment provided.Attachments: 08:11 [facility] Payment Agreement mm15 14:46 ECG/EKG gb Chart Complete MTDD
--- NOTE | 2016-04-05 08:43 | EDDOCDS ---
Nurse's Notes [facility] Name: Keyur Vazquez Age: 81 yrs Sex: Female : 1935 Arrival Date: 04/03/2016 Time: 04:00 Bed 9 Private MD: Diagnosis: Chest pain, unspecified Presentation: 04/03 04:19 Presenting complaint: Patient states: burning started a couple hours ago in upper left ko2 chest and throat area. Pt states that she fell back to sleep and when she woke up the burning was still there so she came into the ED. Pt states that she has some tingling down left arm. Aspirin was not taken prior to arrival. Suicide/Homicide risk assessment- the patient denies having any suicidal and/or homicidal ideations and does not present with any other emotional, behavioral or mental health complaints. 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 Transition of care: patient was not received from another setting of care. 04:19 Acuity: LESVIA Level 3 ko2 04:19 Method Of Arrival: Walkin/Carried/Asstd ko2 04:29 Adult Sepsis Screening: The patient does not have new or worsening altered mentation. ko2 Patient's respiratory rate is less than 22. Systolic blood pressure is greater than 100. Patient has a qSOFA score of 0- Negative Sepsis Screen. Triage Assessment: 04:22 General: Appears in no apparent distress, Behavior is appropriate for age, cooperative. ko2 Pain: Location: anterior aspect of left upper chest Quality of pain is described as burning. The patient is triaged at the bedside. See Assessment in Nurses Notes section of ED record. Neurological: Level of Consciousness is awake, alert. Cardiovascular: Chest pain is described as vague, radiates to left arm(s) episodes are intermittent began 4 hours prior to arrival. Respiratory: Airway is patent Respiratory effort is even, unlabored. Derm: Skin is normal. Historical: - Allergies: No known drug Allergies; - Home Meds: 1. calcium 1 tab daily 2. levothyroxine 75 mcg oral tab 1 tab once daily 3. multivitamin Oral tab 1 tab daily 4. Vitamin D Oral 50,000 unit every 2 weeks - PMHx: Hypothyroidism; Ramos's Esophagus; - PSHx: Tonsillectomy; Hernia repair; Adenoidectomy; - The history from nurses notes was reviewed: and I agree with what is documented. - Social history: Smoking status: Patient states former smoker of tobacco. No barriers to communication noted, The patient speaks fluent Macedonian, Speaks appropriately for age. - Family history: Not pertinent. - : The pt / caregiver states he / she is not on anticoagulants. Home medication list is obtained from the patient. - Hospitalizations: : No recent hospitalization is reported. - Exposure Risk Screening:: None identified. - Immunization history:: All immunizations up-to-date. - Social history:: the patient is a non-smoker, the patient does not drink alcohol. Screenin:23 Screening information is obtained from the patient. Fall risk: At risk due to age. ko2 Assistance ADL's: requires no assistance with activities of daily living. Abuse/DV Screen: The patient / caregiver reports he/she is: not in a situation that causes fear, pain or injury. Nutritional screening: No deficits noted. Advance Directives: Currently, there is a health care proxy, Pratik Vazquez - Son. There is an active DNR order but there is no copy available at this time. There is a living will, but a copy is not available at this time. There is no Power of Financial Foundations Associate. home support is adequate. Assessment: 04:23 General: See triage assessment. ko2 05:49 General: Appears in no apparent distress, comfortable, Behavior is appropriate for age, ko2 cooperative. Pain: Denies pain. Neurological: Level of Consciousness is awake, alert. Cardiovascular: Rhythm is regular. Respiratory: Airway is patent Respiratory effort is even, unlabored. Derm: Skin is normal. 06:35 General: Appears in no apparent distress, comfortable, Behavior is appropriate for age, ko2 cooperative. Neurological: Level of Consciousness is awake, alert. Respiratory: Airway is patent Respiratory effort is even, unlabored. Derm: Skin is normal. 07:13 General: Appears report has been recvd. Pt is alert and without complaints. denies jmk discomfort. Monitor is sr without ectopy. chest CTA. abd soft and non distended with bowel sounds present x 4. sl intact. without resp distress. 07:40 General: Appears without symptoms. receptive to discharge. tolerant to activity. [facility] Vital Signs: 04:17 BP 161 / 79 (auto/); ko2 04:18 Pulse 86 MON; Pulse Ox 97% ; ko2 04:27 BP 161 / 79; Pulse 82; Resp 18; Temp 97.2(O); Pulse Ox 95% ; Weight 63.05 kg; Height 5 ko2 ft. 6 in. (167.64 cm); 04:32 BP 154 / 70 (auto/); ko2 04:32 Pulse 80 MON; Pulse Ox 95% ; ko2 04:47 BP 154 / 71 (auto/); ko2 04:48 Pulse 78 MON; Pulse Ox 96% ; ko2 05:02 BP 148 / 71 (auto/); ko2 05:02 Pulse 78 MON; Pulse Ox 95% ; ko2 05:17 BP 144 / 70 (auto/); ko2 05:17 Pulse 72 MON; Pulse Ox 95% ; ko2 05:32 BP 143 / 69 (auto/); ko2 05:33 Pulse 70 MON; Pulse Ox 95% ; ko2 05:47 BP 145 / 70 (auto/); ko2 05:47 Pulse 70 MON; Pulse Ox 96% ; ko2 06:02 BP 152 / 71 (auto/); ko2 06:02 Pulse 74 MON; Pulse Ox 96% ; ko2 06:17 BP 159 / 73 (auto/); ko2 06:17 Pulse 72 MON; Pulse Ox 97% ; ko2 06:32 BP 166 / 77 (auto/); ko2 06:33 Pulse 74 MON; Pulse Ox 98% ; ko2 07:02 BP 158 / 71 (auto/); jmk 07:03 Pulse 76 MON; Pulse Ox 96% ; jmk 07:40 BP 160 / 71; Pulse 83; Resp 16; Temp 98.0; jmk 04:27 Body Mass Index 22.43 (63.05 kg, 167.64 cm) ko2 Vitals: 04:28 Log In Time: April 03, 2016 at 04:01. ko2 ED Course: 04:01 Patient visited by Jaylyn Parra. lja 04:01 Patient moved to Waiting lja 04:05 Sagrario Guzman,ANYI is Primary Nurse. lf1 04:05 Patient moved to 9 lf1 04:12 Young Shah MD is Attending Physician. pc 04:12 Patient visited by Young Shah MD. pc 04:14 Patient visited by Kumar William. jp4 04:14 EKG done. (by ED staff). Reviewed by Young Shah MD. jp4 04:20 Triage Initiated ko2 04:20 Inserted saline lock: 20 gauge in right forearm and blood collected. The patient ko2 tolerated the procedure well. 04:28 The patient / caregiver is instructed regarding the plan of care and ED course. Cardiac ko2 monitor on. Pulse ox on. NIBP on. 04:28 Lipase Sent. cf2 04:28 Liver Profile Sent. cf2 04:28 Basic Metabolic Profile Sent. cf2 04:28 CBC with Diff Sent. cf2 04:28 Cardiac Injury Profile Sent. cf2 04:28 Troponin Sent. cf2 05:18 Patient visited by Sagrario Guzman,ANYI. ko2 06:07 Primary Nurse role handed off by Sagrario Guzman RN cf2 06:07 Raiza Spain,ANYI is Primary Nurse. cf2 06:07 Patient visited by Raiza Spain,ANYI. cf2 06:28 Patient visited by Susannah Royal PCA. jorge 06:28 EKG done. (by ED staff). Reviewed by Young Shah MD. jorge 06:35 CARDIAC MARKER PANEL Sent. pawan 06:36 Patient visited by Sagrario Guzman,ANYI. ko2 07:01 Attending Physician role handed off by Young Shah MD sd1 07:01 Corin Calderon MD is Attending Physician. sd1 07:12 Attending Physician role handed off by Corin Calderon MD pc 07:12 Young Shah MD is Attending Physician. pc 07:15 Patient visited by Олег Ramesh,ANYI. jmk 07:17 Uri Sultana MD is Referral Physician. pc 07:40 Discontinued lock intact, bleeding controlled, pressure dressing applied, No jmk redness/swelling at site. No procedures done that require assistance. 07:44 portable chest Returned. EDMS 08:11 [facility] Agreement was scanned into [employer] and attached to record. mm15 14:46 ECG/EKG was scanned into [employer] and attached to record. gb 14:46 Trend VS was scanned into [employer] and attached to record. gb 20:05 EKG-ADULT Returned. EDMS 20:05 ECG WITH READING ER PHYS Returned. EDMS Administered Medications: 04:39 Drug: Aspirin 324 mg [aspirin 81 mg chewable tablet (4 tabs)] Route: PO; ko2 04:39 Drug: pantoprazole 40 mg [pantoprazole 40 mg intravenous solution] Route: IV; Rate: ko2 bolus; Site: right antecubital; Attachments: 14:46 Trend VS gb Order Results: Lab Order: Basic Metabolic Profile; SPEC'M 04/03/16 04:27 Test: GLUCOSE, FASTING; Value: 117; Range: 83-110; Abnormal: Above high normal; Units: MG/DL; Status: F Test: BLOOD UREA NITROGEN; Value: 20; Range: 7-18; Abnormal: Above high normal; Units: MG/DL; Status: F Test: CREATININE FOR GFR; Value: 0.81; Range: 0.55-1.02; Units: MG/DL; Status: F Test: GLOMERULAR FILTRATION RATE; Value: > 60.0; Range: >32; Status: F Test: SODIUM LEVEL; Value: 144; Range: 136-145; Units: MEQ/L; Status: F Test: POTASSIUM SERUM; Value: 4.1; Range: 3.5-5.1; Units: MEQ/L; Status: F Test: CHLORIDE LEVEL; Value: 108; Range: 98-107; Abnormal: Above high normal; Units: MEQ/L; Status: F Test: CARBON DIOXIDE LEVEL; Value: 25; Range: 21-32; Units: MEQ/L; Status: F Test: ANION GAP; Value: 11; Range: 8-16; Units: MEQ/L; Status: F Test: CALCIUM LEVEL; Value: 9.2; Range: 8.8-10.2; Units: MG/DL; Status: F Test Note: ; Units are mL/min/1.73 m2 Chronic Kidney Disease Staging per NKF: Stage I & II GFR >=60 Normal to Mildly Decreased Stage III GFR 30-59 Moderately Decreased Stage IV GFR 15-29 Severely Decreased Stage V GFR <15 Very Little GFR Left ESRD GFR <15 on SCIENCE ANALYST Lab Order: CBC with Diff; SPEC'M 04/03/16 04:27 Test: WHITE BLOOD COUNT; Value: 5.8; Range: 4.0-10.0; Units: K/mm3; Status: F Test: RED BLOOD COUNT; Value: 4.39; Range: 4.00-5.40; Units: M/mm3; Status: F Test: HEMOGLOBIN; Value: 13.7; Range: 12.0-16.0; Units: g/dl; Status: F Test: HEMATOCRIT; Value: 41.7; Range: 36.0-47.0; Units: %; Status: F Test: MEAN CORPUSCULAR VOLUME; Value: 95.1; Range: 80.0-96.0; Units: fl; Status: F Test: MEAN CORPUSCULAR HEMOGLOBIN; Value: 31.3; Range: 27.0-33.0; Units: pg; Status: F Test: MEAN CORPUSCULAR HGB CONC; Value: 32.9; Range: 32.0-36.5; Units: g/dl; Status: F Test: RED CELL DISTRIBUTION WIDTH; Value: 13.1; Range: 11.5-14.5; Units: %; Status: F Test: PLATELET COUNT, AUTOMATED; Value: 308; Range: 150-450; Units: k/mm3; Status: F Test: NEUTROPHILS %; Value: 55.2; Range: 36.0-66.0; Units: %; Status: F Test: LYMPH %; Value: 34.4; Range: 24.0-44.0; Units: %; Status: F Test: MONO %; Value: 5.8; Range: 0.0-5.0; Abnormal: Above high normal; Units: %; Status: F Test: EOS %; Value: 2.0; Range: 0.0-3.0; Units: %; Status: F Test: BASO %; Value: 0.5; Range: 0.0-1.0; Units: %; Status: F Test: LARGE UNSTAINED CELL %; Value: 2.1; Range: 0.0-4.0; Units: %; Status: F Test: NEUTROPHILS #; Value: 3.2; Range: 1.8-7.7; Units: K/mm3; Status: F Test: LYMPH #; Value: 2.1; Range: 1.5-4.5; Units: K/mm3; Status: F Test: MONO #; Value: 0.3; Range: 0.0-0.8; Units: K/mm3; Status: F Test: EOS #; Value: 0.1; Range: 0.0-0.50; Units: K/mm3; Status: F Test: BASO #; Value: 0.0; Range: 0.0-0.2; Units: K/mm3; Status: F Test: LARGE UNSTAINED CELL #; Value: 0.1; Range: 0.0-0.4; Units: K/mm3; Status: F Lab Order: Cardiac Injury Profile; SPEC' 04/03/16 04:27 Test: CPK CREATINE PHOSPHOKINASE; Value: 47; Range: 26-192; Units: U/L; Status: F Test: CK-MB VALUE MASS; Value: 2.0; Range: 0.0-3.6; Units: NG/ML; Status: F Test: MB/CK RELATIVE INDEX; Value: 4.25; Range: < OR =4; Abnormal: Above high normal; Status: F Test Note: ; DIAGNOSIS CRITERIA MMB ng/ml Relative Index (RI) NON-AMI < or = 5 N/A TYLER ZONE > 5 < or = 4 AMI > 5 > 4 Lab Order: Troponin; SPEC'M 04/03/16 04:27 Test: TROPONIN I; Value: < 0.02; Range: < 0.10; Units: NG/ML; Status: F Test Note: ; Troponin I Reference Interval for [place] LOCI: 99th Percentile= 0.00-0.045 ng/ml Risk Stratification: <= 0.10 ng/ml Decreased Risk for Adverse Clinical Events. 0.10-1.50 ng/ml Increased Risk for Adverse Clinical Events. Evaluation of additional criterion and/or repeat testing in 2-6 hours is suggested to rule out myocardial damage. >= 1.50 ng/ml Indicative of Myocardial Injury. Lab Order: Liver Profile; SPEC'M 04/03/16 04:27 Test: AST/SGOT; Value: 14; Range: 15-37; Abnormal: Below low normal; Units: U/L; Status: F Test: ALT/SGPT; Value: 20; Range: 12-78; Units: U/L; Status: F Test: ALKALINE PHOSPHATASE; Value: 60; Range: 45-117; Units: U/L; Status: F Test: BILIRUBIN,TOTAL; Value: 0.3; Range: 0.2-1.0; Units: MG/DL; Status: F Test: BILIRUBIN,DIRECT; Value: < 0.1; Range: 0.0-0.2; Units: MG/DL; Status: F Test: TOTAL PROTEIN; Value: 6.3; Range: 6.4-8.2; Abnormal: Below low normal; Units: GM/DL; Status: F Test: ALBUMIN; Value: 3.5; Range: 3.2-5.2; Units: GM/DL; Status: F Test: ALBUMIN/GLOBULIN RATIO; Value: 1.25; Range: 1.00-1.93; Status: F Lab Order: Lipase; SPEC'M 04/03/16 04:27 Test: LIPASE; Value: 197; Range: 73-393; Units: U/L; Status: F Lab Order: CARDIAC MARKER PANEL; SPEC' 04/03/16 06:37 Test: CPK CREATINE PHOSPHOKINASE; Value: 38; Range: 26-192; Units: U/L; Status: F Test: CK-MB VALUE MASS; Value: 1.8; Range: 0.0-3.6; Units: NG/ML; Status: F Test: MB/CK RELATIVE INDEX; Value: 4.73; Range: < OR =4; Abnormal: Above high normal; Status: F Test: TROPONIN I; Value: < 0.02; Range: < 0.10; Units: NG/ML; Status: F Test Note: ; DIAGNOSIS CRITERIA MMB ng/ml Relative Index (RI) NON-AMI < or = 5 N/A TYLER ZONE > 5 < or = 4 AMI > 5 > 4 Radiology Order: EKG-ADULT Test: EKG-ADULT REASON FOR EXAMINATION: Chest Pain; Stationary ECG Study; [facility] - ED; ; Test Date: 2016-04-03; Pat Name: KEYUR VAZQUEZ Department:; Room: -; Gender: F 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 Marketing Intern: soha; : 1935 Requested By: Young Ellison; Order Number: [id number] Reading MD: Corin Calderon; Measurements; Intervals [place]; Rate: 87 P: 51; MA: 168 QRS: -32; QRSD: 89 T: 24; QT: 358; QTc: 433; Interpretive Statements; SINUS RHYTHM; LEFT ATRIAL ENLARGEMENT; MARKED LEFT AXIS DEVIATION; POSSIBLE LEFT VENTRICULAR HYPERTROPHY; INCREASED RATE 03/30/16; Electronically Signed On 04-03-2016 19:53:51 EST by Corin Calderon; Radiology Order: portable chest Test: portable chest REASON FOR EXAMINATION: Chest Pain; Clinical: Chest pain .; ; Comparison: 03/30/2016 .; ; Findings:; The mediastinum and cardiac silhouette are stable and within normal limits for; portable technique. The lung phan are clear without acute consolidation,; effusion, or pneumothorax. Skeletal structures are intact.; ; Impression:; Normal portable chest x-ray; ; ; Signed by; Kalpesh Montero MD 04/03/2016 07:35 A; Radiology Order: ECG WITH READING ER PHYS Test: ECG WITH READING ER PHYS REASON FOR EXAMINATION: CX PN; Stationary ECG Study; [facility] ED; ; Test Date: 2016-04-03; Pat Name: KEYUR VAZQUEZ Department:; Room: -; Gender: F Event Marketing Intern: tania; : 1935 Requested By: Young Ellison; Order Number: [id number] Reading MD: Corin Calderon; Measurements; Intervals [place]; Rate: 72 P: 49; MA: 174 QRS: -26; QRSD: 90 T: 29; QT: 379; QTc: 416; Interpretive Statements; SINUS RHYTHM; POSSIBLE LEFT ATRIAL ENLARGEMENT; BORDERLINE LEFT AXIS DEVIATION; POSSIBLE LEFT VENTRICULAR HYPERTROPHY; NSTTW ABNORMALITY; DECREASED RATE 04/03/16 4:13; Electronically Signed On 04-03-2016 19:54:48 EST by Corin Calderon; Outcome: 07:17 Discharge ordered by Provider. pc 07:40 Discharge Assessment: Patient awake, alert and oriented x 3. No cognitive and/or jmk functional deficits noted. Patient verbalized understanding of disposition instructions. patient administered narcotics - no. The following High Risk Discharge criteria are identified: None. Discharged to home ambulatory. Condition: good. Discharge instructions given to patient, Instructed on discharge instructions, follow up and referral plans. medication usage, Demonstrated understanding of instructions, medications, Pt was receptive of discharge instructions/ teaching. No special radiology studies were completed. Property :Personal belongings accompany Pt. 07:42 Patient left the ED. jmk Signatures: Dispatcher [employer] EDMS Young Shah MD MD pc Delaney-Rowland, Sarah, MD MD sd1 Олег Raemsh,RN RN Nica Soto,RN RN Kelsey Allan, Reg Reg gb Jaylyn Muller,RN RN lf1 Lele, Susannah, BOOKBINDER APPRENTICE BOOKBINDER APPRENTICE jorge Ilsa Rosado mm15 Jakee, Kumar jp4 Sagrario Guzman RN RN ko2 Jaylyn Parra ChristinaRN RN cf2 Chart Complete MTDD
[2016-04-12] MEDS ORDERED: LEVO75TA4 PO (09:15)
[2016-04-12] MEDS ORDERED: OMEP40CA2 PO (09:15)
[2016-04-12] MEDS ORDERED: MAGN30TA2 PO (09:15)
[2016-04-12] MEDS ORDERED: VITA200016 PO (09:15)
== END 2016-04-03 07:42 | disposition home or self-care (01) ==
LOC: M ED 04:00
DX: R07.9 Chest pain, unspecified (principal); R94.31 Abnormal electrocardiogram [ECG] [EKG]; E03.9 Hypothyroidism, unspecified; K22.70 Barrett's esophagus without dysplasia; Z79.899 Other long term (current) drug therapy
CPT/HCPCS: 36415; 71010; 80048; 80076; 82550; 82553; 83690; 84484; 85025; 93005; 93041; 96374; 99285; C9113

== ENCOUNTER → 2016-04-19 | Day surgery (SDC) | payer MEDICARE ==
[~2016-04-19] VITALS: Ht 167.6 cm; Wt 63.0 kg
[~2016-04-19] MED LIST: BUPIVACAINE HCL 0.25% 30 ML VIAL As Ordered ONE; BUPIVACAINE HCL 0.25% 30 ML VIAL XX ONE; KETOROLAC 30 MG/ML VIAL (J1885) As Ordered ONE; KETOROLAC 30 MG/ML VIAL (J1885) IV PRN; LEVO75TA4 PO; LIDOCAINE 1% SDV INJ 30 ML VIAL As Ordered ONE; LIDOCAINE 2% INJ 100 MG/5 ML SDV (FOR ANES.) As Ordered ONE; LR 1,000 ML IV SCH; MAGN30TA2 PO; MIDAZOLAM INJ 2 MG/2 ML VIAL (J2250) As Ordered ONE; NORCO, ANEXSIA 5/325MG TABLET (HYDROcodone/ACETAMINOPHEN) PO PRN; OMEP40CA2 PO; ONDANSETRON 4MG/2ML VIAL (J2405) As Ordered ONE; ONDANSETRON 4MG/2ML VIAL (J2405) IV PRN; PHENYLephrine HCL 500 MCG/5 ML (100MCG/ML) SYRINGE (J2370) As Ordered ONE; PROPOFOL 200 MG/20 ML VIAL As Ordered ONE; ROCURONIUM BROMIDE 50 MG/5 ML VIAL As Ordered ONE; SUGAMMADEX SODIUM 500 MG/5 ML VIAL (BRIDION) As Ordered ONE; VITA200016 PO; dexameTHASONE 4 MG/ML 1ML VIAL (J1100) As Ordered ONE; ePHEDrine SULFATE 25 MG/5 ML(5MG/ML) SYRINGE As Ordered ONE; fentaNYL 100 MCG/2 ML INJECTION (J3010) As Ordered ONE; fentaNYL 100 MCG/2 ML INJECTION (J3010) IV PRN
[2016-04-19] MEDS: PERCOCET 5MG/325MG TAB PO PRN ×2 (09:31→10:14)
[2016-04-19 12:05] VITALS: BP 144/74
--- NOTE | 2016-04-20 08:52 | RO ---
DATE OF PROCEDURE: 04/19/2016 PREOPERATIVE DIAGNOSIS: Right inguinal hernia. POSTOPERATIVE DIAGNOSIS: Indirect right inguinal hernia. PROCEDURE PERFORMED: Right inguinal herniorrhaphy with UltraPro mesh. SURGEON: Parag Mckeon MD ANESTHESIA: General. MESH UTILIZED: UltraPro. Lot number [id number]. INDICATIONS FOR THE PROCEDURE: The patient is an 81-year-old woman who has noticed a significant bulge in the right inguinal area. Examination confirmed a right inguinal hernia, and she is now for repair. OPERATIVE PROCEDURE: The patient was placed under general endotracheal anesthesia. The patient's lower abdomen was prepped and draped in a sterile fashion. An approximately 7-8 cm oblique right lower quadrant skin incision was made over the course of the inguinal canal. The incision was deepened through the subcutaneous tissues. A large vein was clamped, divided, and ligated with chromic. The external oblique was opened in the direction of its fibers into the external ring. Dissection revealed a roughly 5 cm indirect inguinal hernia sac. The round ligament appeared to be incorporated into one side of the hernia sac. The sac was opened, and there were no adherent contents. The sac was twisted and suture ligated at its neck with 0 Vicryl. The sac was then excised. A Bassini type closure of the inguinal floor was then performed with interrupted simple sutures of 2-0 Ethibond. A 6 x 11 cm piece of UltraPro mesh was then selected. This was trimmed to fit the inguinal floor and was sutured along the lateral edge with a running suture of 3-0 Prolene. The mesh was sutured to the shelving edge of the inguinal ligament. The medial portion of the mesh was tacked down with interrupted simple sutures of 3-0 Vicryl. Approximately 10 mL of 0.25% Marcaine was infiltrated into the inguinal floor. The external oblique was closed with a running suture of 0 Vicryl. The subcutaneous tissues were closed with chromic. The skin edges were approximated with a running subcuticular 4-0 Vicryl. An additional 10 mL of 0.25% Marcaine was infiltrated into the subcutaneous tissues along the wound edges. Steri-Strips were applied, followed by a light dressing. The patient tolerated the procedure well without apparent complication. She was awakened in the operating room, extubated, and moved to the recovery room in stable condition.
== END | disposition home or self-care (01) ==
LOC: M SDC 06:00
PROVIDERS: ATTEND Surgery
DX: K40.90 Unilateral inguinal hernia, without obstruction or gangrene, not specified as recurrent (principal); E03.9 Hypothyroidism, unspecified; F32.9 Major depressive disorder, single episode, unspecified; H35.30 Unspecified macular degeneration; I49.3 Ventricular premature depolarization; R00.2 Palpitations; K21.9 Gastro-esophageal reflux disease without esophagitis; R07.9 Chest pain, unspecified; M81.0 Age-related osteoporosis without current pathological fracture; K22.70 Barrett's esophagus without dysplasia; Z78.0 Asymptomatic menopausal state; Z87.891 Personal history of nicotine dependence; Z96.1 Presence of intraocular lens; Z79.899 Other long term (current) drug therapy
CPT/HCPCS: 49650; 88302; C1781; J1100; J1885; J2250; J2370; J2405; J3010

== ENCOUNTER → 2016-07-03 | Outpatient (CLI) | payer MEDICARE ==
[~2016-07-03] VITALS: Ht 167.6 cm; Wt 63.5 kg
[~2016-07-03] MED LIST changes: -BUPIVACAINE HCL 0.25% 30 ML VIAL As Ordered ONE; -BUPIVACAINE HCL 0.25% 30 ML VIAL XX ONE; +CALC600T10 PO; -KETOROLAC 30 MG/ML VIAL (J1885) As Ordered ONE; -KETOROLAC 30 MG/ML VIAL (J1885) IV PRN; -LIDOCAINE 1% SDV INJ 30 ML VIAL As Ordered ONE; -LR 1,000 ML IV SCH; -MIDAZOLAM INJ 2 MG/2 ML VIAL (J2250) As Ordered ONE; -NORCO, ANEXSIA 5/325MG TABLET (HYDROcodone/ACETAMINOPHEN) PO PRN; +NS 1,000 ML IV SCH; +OCUVTAB PO; -ONDANSETRON 4MG/2ML VIAL (J2405) As Ordered ONE; -ONDANSETRON 4MG/2ML VIAL (J2405) IV PRN; -PHENYLephrine HCL 500 MCG/5 ML (100MCG/ML) SYRINGE (J2370) As Ordered ONE; -PROPOFOL 200 MG/20 ML VIAL As Ordered ONE; +PROPOFOL 500 MG/50 ML VIAL As Ordered ONE; -ROCURONIUM BROMIDE 50 MG/5 ML VIAL As Ordered ONE; -SUGAMMADEX SODIUM 500 MG/5 ML VIAL (BRIDION) As Ordered ONE; +VITA50003 PO; -dexameTHASONE 4 MG/ML 1ML VIAL (J1100) As Ordered ONE; -ePHEDrine SULFATE 25 MG/5 ML(5MG/ML) SYRINGE As Ordered ONE; -fentaNYL 100 MCG/2 ML INJECTION (J3010) As Ordered ONE; -fentaNYL 100 MCG/2 ML INJECTION (J3010) IV PRN
--- NOTE | 2016-07-03 14:36 | ROOR ---
Patient Name: Jayna Granado Procedure Date: 07/03/2016 2:17 PM Date of : 1935 Age: 81 Room: [facility] Gender: Female Note Status: Finalized Procedure: Upper GI endoscopy + Biopsies Indications: Heartburn, Chest pain (non cardiac) Providers: Ashok Morgan MD Referring MD: Vargas Jaime MD Requesting Provider: Medicines: Monitored Anesthesia Care Complications: No immediate complications. Procedure: Pre-Anesthesia Assessment: - The heart rate, respiratory rate, oxygen saturations, blood pressure, adequacy of pulmonary ventilation, and response to care were monitored throughout the procedure. The Endoscope was introduced through the mouth, and advanced to the second part of duodenum. The upper GI endoscopy was accomplished without difficulty. The patient tolerated the procedure well. Findings: The Z-line was regular and was found 40 cm from the incisors. Multiple biopsies were obtained with cold forceps for evaluation to rule out Ramos's Esophagus randomly at the gastroesophageal junction. A small hiatal hernia was present. No other significant abnormalities were identified in a careful examination of the stomach. The exam of the duodenum was otherwise normal. Impression: - Z-line regular, 40 cm from the incisors. - Small hiatal hernia. - Multiple biopsies were obtained at the gastroesophageal junction. - The examination was otherwise normal. Recommendation: - Patient has a contact number available for emergencies. The signs and symptoms of potential delayed complications were discussed with the patient. Return to normal activities tomorrow. Written discharge instructions were provided to the patient. - High fiber diet. - Discharge patient to home. - Continue present medications. - Await pathology results. - Check Portal Online for Path Results.([email or web address] - Return to referring physician. - The findings and recommendations were discussed with the patient's family. Ashok Morgan MD Ashok Morgan MD 07/03/2016 2:36:34 PM This report has been signed electronically. Number of Addenda: 0 Note Initiated On: 07/03/2016 2:17 PM Estimated Blood Loss: Estimated blood loss: none.
[2016-07-03 14:55] VITALS: BP 146/75
== END | disposition home or self-care (01) ==
LOC: M OPP 13:03
PROVIDERS: ATTEND Internal Medicine Gastroenterology
DX: K44.9 Diaphragmatic hernia without obstruction or gangrene (principal); M81.0 Age-related osteoporosis without current pathological fracture; Z79.899 Other long term (current) drug therapy; Z87.891 Personal history of nicotine dependence

== ENCOUNTER → 2017-01-13 | Outpatient (CLI) | payer MEDICARE ==
[~2017-01-13] MED LIST changes: -CALC600T10 PO; +CALC600T31 PO; -LIDOCAINE 2% INJ 100 MG/5 ML SDV (FOR ANES.) As Ordered ONE; -NS 1,000 ML IV SCH; -PROPOFOL 500 MG/50 ML VIAL As Ordered ONE; +VITA1CAP40 PO; -VITA50003 PO
--- NOTE | 2017-01-13 14:49 | REPMRS ---
Patient History The patient states she has not had a clinical breast exam in over a year. Patient is postmenopausal and has history of other cancer at age 78. No known family history of cancer. Digital Woman Screen Mammo: January 13, 2017 - Exam #: [id number] Bilateral CC and MLO view(s) were taken. Technologist: Kennedi Alcocer, Technologist Prior study comparison: June 12, 2015, digital woman screen mammo performed at [facility] to [facility]. July 05, 2013, digital woman screen mammo performed at [facility] to [facility]. FINDINGS: There are scattered fibroglandular densities. There has been no change in the appearance of the mammogram from the prior studies. There is a mild amount of residual fibroglandular tissue which is fairly symmetric. There is no interval development of dominant mass, architectural distortion, or clustered microcalcification suggestive of malignancy. ASSESSMENT: BI-RADS/ACR category 1 mammogram. Negative. Recommendation Routine screening mammogram in 1 year (for women over age 40). This mammogram was interpreted with the aid of an FDA-approved computer-aided dectection system. Electronically Signed By: Ba Hampton MD 01/13/17 [id number]
== END ==
LOC: M WHC 13:06
PROVIDERS: ATTEND Internal Medicine
DX: Z12.31 Encounter for screening mammogram for malignant neoplasm of breast (principal); Z78.0 Asymptomatic menopausal state

== ENCOUNTER → 2017-01-17 | Outpatient (REF) | payer MEDICARE ==
[2017-01-17 11:46] LABS: MEAN CORPUSCULAR HEMOGLOBIN 30.9 pg (27.0-33.0); MEAN CORPUSCULAR HGB CONC 32.2 g/dl (32.0-36.5); MEAN CORPUSCULAR VOLUME 96.2 fl (80.0-96.0); PLATELET COUNT, AUTOMATED 289 10^3/uL (150-450); RED CELL DISTRIBUTION WIDTH 13.2 % (11.5-14.5); WHITE BLOOD COUNT 5.2 10^3/uL (4.0-10.0)
[2017-01-17 12:17] LABS: ALBUMIN 3.4 GM/DL (3.2-5.2); ALBUMIN/GLOBULIN RATIO 1.13 (1.00-1.93); ALKALINE PHOSPHATASE 63 U/L (45-117); ALT/SGPT 20 U/L (12-78); ANION GAP 6 MEQ/L (8-16); AST/SGOT 12 U/L (15-37); BILIRUBIN,TOTAL 0.4 MG/DL (0.2-1.0); BLOOD UREA NITROGEN 24 MG/DL (7-18); CALCIUM LEVEL 9.1 MG/DL (8.8-10.2); CARBON DIOXIDE LEVEL 31 MEQ/L (21-32); CHLORIDE LEVEL 107 MEQ/L (98-107); CHOLESTEROL LEVEL 217 MG/DL (<200); CREATININE FOR GFR 0.86 MG/DL (0.55-1.02); GLOMERULAR FILTRATION RATE > 60.0 (>32); GLUCOSE, FASTING 86 MG/DL (83-110); POTASSIUM SERUM 4.7 MEQ/L (3.5-5.1); SODIUM LEVEL 144 MEQ/L (136-145); TOTAL PROTEIN 6.4 GM/DL (6.4-8.2); TRIGLYCERIDES LEVEL 117 MG/DL (<150)
== END ==
LOC: M SFHCPLAZ 08:27
PROVIDERS: ATTEND Internal Medicine
DX: E03.9 Hypothyroidism, unspecified (principal); E78.00 Pure hypercholesterolemia, unspecified; E55.9 Vitamin D deficiency, unspecified; R00.2 Palpitations

== ENCOUNTER 2017-03-20 06:14 | Emergency (ER) | payer MEDICARE ==
[~2017-03-20] VITALS: Ht 167.6 cm; Wt 63.6 kg
[2017-03-20] MEDS ORDERED: MIRT30TA3 (06:25)
[2017-03-20] MEDS ORDERED: NS 1,000 ML IV ONE (07:00)
[2017-03-20 07:06] LABS: BASO % 0.6 % (0.0-1.0); EOS # 0.1 10^3/uL (0.0-0.50); EOS % 2.3 % (0.0-3.0); IMMATURE GRANULOCYTE % 0.2 % (0-0); LYMPH % 41.2 % (24.0-44.0); MEAN CORPUSCULAR HEMOGLOBIN 30.6 pg (27.0-33.0); MEAN CORPUSCULAR HGB CONC 32.8 g/dl (32.0-36.5); MEAN CORPUSCULAR VOLUME 93.2 fl (80.0-96.0); MONO # 0.4 10^3/uL (0.0-0.8); MONO % 8.7 % (0.0-5.0); NEUTROPHILS # 2.3 10^3/uL (1.8-7.7); PLATELET COUNT, AUTOMATED 301 10^3/uL (150-450); RED CELL DISTRIBUTION WIDTH 12.3 % (11.5-14.5); WHITE BLOOD COUNT 4.9 10^3/uL (4.0-10.0)
[2017-03-20 07:16] LABS: ALBUMIN 3.6 GM/DL (3.2-5.2); ALBUMIN/GLOBULIN RATIO 1.06 (1.00-1.93); ALKALINE PHOSPHATASE 63 U/L (45-117); ALT/SGPT 17 U/L (12-78); AMYLASE 28 U/L (25-115); ANION GAP 8 MEQ/L (8-16); AST/SGOT 14 U/L (7-37); BILIRUBIN,DIRECT < 0.1 MG/DL (0.0-0.2); BILIRUBIN,TOTAL 0.4 MG/DL (0.2-1.0); BLOOD UREA NITROGEN 19 MG/DL (7-18); CALCIUM LEVEL 8.9 MG/DL (8.8-10.2); CARBON DIOXIDE LEVEL 27 MEQ/L (21-32); CHLORIDE LEVEL 107 MEQ/L (98-107); CREATININE FOR GFR 0.84 MG/DL (0.55-1.02); GLOMERULAR FILTRATION RATE > 60.0 (>32); GLUCOSE, FASTING 103 MG/DL (83-110); POTASSIUM SERUM 3.4 MEQ/L (3.5-5.1); SODIUM LEVEL 142 MEQ/L (136-145)
[2017-03-20 08:25] LABS: MUCUS, URINE RFX SMALL (NEGATIVE); SPECIFIC GRAVITY UR AUTO RFX 1.016 (1.002-1.035); SQUAM EPITHELIAL CELL UR AURFX 1 /HPF (0-6)
[2017-03-20] MEDS ORDERED: ZOFR4TAB3 PO (08:37)
[2017-03-20] MEDS ORDERED: POTASSIUM CHLORIDE 10 MEQ SR TABLET PO ONE (08:45)
[2017-03-20 08:49] VITALS: BP 163/77
--- NOTE | 2017-03-20 08:55 | REP ---
Right upper quadrant sonography: History: However quadrant pain. Nausea and vomiting. Comparison study: Comparison CT study abdomen is from March 20, 2007. Findings: Scanning through the right upper quadrant of the abdomen demonstrates a normal sized, thin-walled gallbladder without evidence of stone or polyp. Common bile duct is normal measuring 0.5 cm in greatest diameter. No focal liver lesion is seen. Liver size is normal. No pancreatic abnormality is observed. No right renal abnormality is seen. There is no evidence of ascites. The right kidney measures 9.7 x 5.0 x 3.5 cm. Impression: Negative right upper quadrant sonography. Signed by Salomon Meléndez MD 03/20/2017 03:53 P
--- NOTE | 2017-03-21 16:39 | ECGEPIP ---
Stationary ECG Study [facility] - ED Test Date: 2017-03-20 Pat Name: KEYUR VAZQUEZ Department: Room: - Gender: F Weight Loss Physician: sb : 1935 Requested By: JOSE Mcbride Order Number: [id number] Reading MD: Corin Calderon Measurements Intervals [place] Rate: 65 P: 49 MN: 175 QRS: -19 QRSD: 91 T: 15 QT: 398 QTc: 416 Interpretive Statements SINUS RHYTHM MINIMAL VOLTAGE CRITERIA FOR LVH, CONSIDER NORMAL VARIANT NSTTW ABNORMALITY BASELINE ARTIFACT LIMITS INTERPRETATION DECREASED RATE 04/03/16 Electronically Signed On 03-21-2017 16:38:43 EST by Corin Calderon
== END 2017-03-20 08:51 | disposition home or self-care (01) ==
LOC: M ED 06:14
DX: K80.50 Calculus of bile duct without cholangitis or cholecystitis without obstruction (principal); E87.6 Hypokalemia; E86.0 Dehydration; K21.9 Gastro-esophageal reflux disease without esophagitis; Z79.899 Other long term (current) drug therapy

== ENCOUNTER → 2017-04-02 | Outpatient (CLI) | payer MEDICARE | LOC: M RAD 07:43 | DX: R10.11 Right upper quadrant pain (principal) | CPT/HCPCS: J2805 ==

== ENCOUNTER 2017-07-17 10:01 | Emergency (ER) | payer MEDICARE ==
[2017-07-17 11:11] LABS: BASO % 0.6 % (0.0-1.0); EOS # 0.1 10^3/uL (0.0-0.50); HEMOGLOBIN 13.3 g/dl (12.0-15.5); IMMATURE GRANULOCYTE % 0.1 % (0-3.0); LYMPH # 1.2 10^3/uL (1.5-4.5); LYMPH % 16.2 % (24.0-44.0); MEAN CORPUSCULAR HGB CONC 33.3 g/dl (32.0-36.5); MEAN CORPUSCULAR VOLUME 90.1 fl (80.0-96.0); MONO # 0.5 10^3/uL (0.0-0.8); MONO % 6.8 % (0.0-5.0); NEUTROPHILS # 5.4 10^3/uL (1.8-7.7); NEUTROPHILS % 75.3 % (36.0-66.0); PLATELET COUNT, AUTOMATED 305 10^3/uL (150-450); RED BLOOD COUNT 4.44 10^6/uL (4.00-5.40); RED CELL DISTRIBUTION WIDTH 13.3 % (11.5-14.5); WHITE BLOOD COUNT 7.1 10^3/uL (4.0-10.0)
[2017-07-17 11:34] LABS: ALBUMIN 3.6 GM/DL (3.2-5.2); ALBUMIN/GLOBULIN RATIO 1.06 (1.00-1.93); ALKALINE PHOSPHATASE 65 U/L (45-117); ALT/SGPT 20 U/L (12-78); ANION GAP 5 MEQ/L (8-16); AST/SGOT 17 U/L (7-37); BILIRUBIN,DIRECT < 0.1 MG/DL (0.0-0.2); BILIRUBIN,TOTAL 0.4 MG/DL (0.2-1.0); BLOOD UREA NITROGEN 19 MG/DL (7-18); CALCIUM LEVEL 9.3 MG/DL (8.8-10.2); CARBON DIOXIDE LEVEL 26 MEQ/L (21-32); CHLORIDE LEVEL 109 MEQ/L (98-107); CREATININE FOR GFR 0.81 MG/DL (0.55-1.30); GLOMERULAR FILTRATION RATE > 60.0 (>32); GLUCOSE, FASTING 101 MG/DL (70-100); SODIUM LEVEL 140 MEQ/L (136-145); TROPONIN I < 0.02 NG/ML (< 0.10)
[2017-07-17 11:36] LABS: FREE T4 1.08 NG/DL (0.76-1.46)
[2017-07-17 11:36] LABS: MAGNESIUM LEVEL 2.5 MG/DL (1.8-2.4)
[2017-07-17 11:40] LABS: CPK CREATINE PHOSPHOKINASE 43 U/L (26-192); MB/CK RELATIVE INDEX 4.65 (< OR =4)
== END 2017-07-17 12:50 | disposition home or self-care (01) ==
LOC: M ED 10:01
DX: R53.81 Other malaise (principal); F43.20 Adjustment disorder, unspecified; R94.31 Abnormal electrocardiogram [ECG] [EKG]; M19.90 Unspecified osteoarthritis, unspecified site; Z79.890 Hormone replacement therapy; Z79.899 Other long term (current) drug therapy; Z98.890 Other specified postprocedural states
CPT/HCPCS: 71045

== ENCOUNTER → 2018-01-19 | Outpatient (REF) | payer MEDICARE ==
[2018-01-19 11:18] LABS: HEMATOCRIT 40.6 % (36.0-47.0); HEMOGLOBIN 13.2 g/dl (12.0-15.5); MEAN CORPUSCULAR HGB CONC 32.5 g/dl (32.0-36.5); MEAN CORPUSCULAR VOLUME 95.3 fl (80.0-96.0); PLATELET COUNT, AUTOMATED 297 10^3/uL (150-450); RED BLOOD COUNT 4.26 10^6/uL (4.00-5.40); RED CELL DISTRIBUTION WIDTH 12.6 % (11.5-14.5)
[2018-01-19 11:36] LABS: ALBUMIN 3.4 GM/DL (3.2-5.2); ALKALINE PHOSPHATASE 64 U/L (45-117); ALT/SGPT 20 U/L (12-78); ANION GAP 8 MEQ/L (8-16); AST/SGOT 16 U/L (7-37); BILIRUBIN,TOTAL 0.5 MG/DL (0.2-1.0); BLOOD UREA NITROGEN 24 MG/DL (7-18); CALCIUM LEVEL 9.1 MG/DL (8.8-10.2); CARBON DIOXIDE LEVEL 29 MEQ/L (21-32); CHLORIDE LEVEL 106 MEQ/L (98-107); CHOLESTEROL LEVEL 225 MG/DL (<200); CHOLESTEROL RISK RATIO 3.515 (<5); CREATININE FOR GFR 0.78 MG/DL (0.55-1.30); GLOMERULAR FILTRATION RATE > 60.0 (>32); GLUCOSE, FASTING 88 MG/DL (70-100); HDL CHOLESTEROL 64 MG/DL (>40); LDL CHOLESTEROL 141 MG/DL (<100); MAGNESIUM LEVEL 2.1 MG/DL (1.8-2.4); NON-HDL-C 161 MG/DL; POTASSIUM SERUM 4.4 MEQ/L (3.5-5.1); SODIUM LEVEL 143 MEQ/L (136-145); TOTAL PROTEIN 6.5 GM/DL (6.4-8.2); TRIGLYCERIDES LEVEL 99 MG/DL (<150)
== END ==
LOC: M SFHCPLAZ 08:44
DX: M81.0 Age-related osteoporosis without current pathological fracture (principal); E78.00 Pure hypercholesterolemia, unspecified; R00.2 Palpitations; E03.9 Hypothyroidism, unspecified
CPT/HCPCS: 83735

== ENCOUNTER → 2018-01-29 | Outpatient (CLI) | payer MEDICARE ==
[~2018-01-29] MED LIST changes: -CALC600T31 PO; +GASTROGRAFIN SOLUTION 30ML (Q9963) As Ordered; +ISOVUE-370 76% 100ML VIAL (Q9967) As Ordered; -LEVO75TA4 PO; -MAGN30TA2 PO; -OCUVTAB PO; -OMEP40CA2 PO; -VITA1CAP40 PO; -VITA200016 PO
== END ==
LOC: M RAD 12:06
DX: R10.13 Epigastric pain (principal); M54.5 Low back pain
CPT/HCPCS: Q9963

== ENCOUNTER → 2018-02-12 | Outpatient (CLI) | payer MEDICARE | LOC: M RAD 12:08 | DX: K83.8 Other specified diseases of biliary tract (principal); K76.89 Other specified diseases of liver; R10.13 Epigastric pain | CPT/HCPCS: 74181 ==

== ENCOUNTER → 2018-09-23 | Outpatient (CLI) | payer MEDICARE ==
[~2018-09-23] MED LIST changes: +CALC600T31 PO; -GASTROGRAFIN SOLUTION 30ML (Q9963) As Ordered; -ISOVUE-370 76% 100ML VIAL (Q9967) As Ordered; +LEVO75TA4 PO; +MAGN30TA2 PO; +MIRT30TA3; +OCUVTAB PO; +OMEP40CA2 PO; +VITA200016 PO; +VITA50005 PO; +ZOFR4TAB14 PO
--- NOTE | 2018-09-23 09:16 | REPMRS ---
Patient History The patient states she had a clinical breast exam in 02/2018. Patient is postmenopausal and has history of other cancer at age 78. Family history of prostate cancer at age 50 or over in son. Digital Woman Screen Mammo: September 23, 2018 - Exam #: [id number] Bilateral CC and MLO view(s) were taken. Technologist: Luisa Worley, Technologist Prior study comparison: January 13, 2017, digital woman screen mammo performed at [facility]. June 12, 2015, digital woman screen mammo performed at [facility]. July 05, 2013, digital woman screen mammo performed at [facility]. FINDINGS: There are scattered fibroglandular densities. There has been no change in the appearance of the mammogram from the prior studies. There is a mild amount of scattered fibroglandular density which is fairly symmetric. There is no interval development of dominant mass, architectural distortion, or grouped microcalcification suggestive of malignancy. 3-D tomosynthesis shows no additional findings. Assessment: BI-RADS/ACR category 1 mammogram. Negative Mammogram. Recommendation Routine screening mammogram of both breasts in 1 year (for women over age 40). This mammogram was interpreted with the aid of an FDA-approved computer-aided dectection system. Electronically Signed By: Perfecto Meléndez MD 09/23/18 0915
== END ==
LOC: M WHC 07:58
PROVIDERS: ATTEND Internal Medicine
DX: Z12.31 Encounter for screening mammogram for malignant neoplasm of breast (principal); Z78.0 Asymptomatic menopausal state; Z85.89 Personal history of malignant neoplasm of other organs and systems

== ENCOUNTER → 2018-09-23 | Outpatient (REF) | payer MEDICARE ==
[2018-09-23 11:10] LABS: ALBUMIN 3.6 GM/DL (3.2-5.2); ALT/SGPT 23 U/L (12-78); BILIRUBIN,TOTAL 0.4 MG/DL (0.2-1.0); BLOOD UREA NITROGEN 27 MG/DL (7-18); CALCIUM LEVEL 9.1 MG/DL (8.8-10.2); CARBON DIOXIDE LEVEL 29 MEQ/L (21-32); CHLORIDE LEVEL 108 MEQ/L (98-107); CHOLESTEROL LEVEL 216 MG/DL (<200); CREATININE FOR GFR 0.91 MG/DL (0.55-1.30); GLOMERULAR FILTRATION RATE > 60.0 (>32); GLUCOSE, FASTING 87 MG/DL (70-100); HDL CHOLESTEROL 80 MG/DL (>40); LDL CHOLESTEROL 114 MG/DL (<100); NON-HDL-C 136 MG/DL; POTASSIUM SERUM 4.2 MEQ/L (3.5-5.1); SODIUM LEVEL 141 MEQ/L (136-145); TOTAL PROTEIN 6.8 GM/DL (6.4-8.2); TRIGLYCERIDES LEVEL 109 MG/DL (<150)
== END ==
LOC: M SFHCPLAZ 07:52
PROVIDERS: ATTEND Internal Medicine
DX: E78.00 Pure hypercholesterolemia, unspecified (principal); E03.9 Hypothyroidism, unspecified; E55.9 Vitamin D deficiency, unspecified; Z12.31 Encounter for screening mammogram for malignant neoplasm of breast; Z78.0 Asymptomatic menopausal state; Z85.89 Personal history of malignant neoplasm of other organs and systems

== ENCOUNTER → 2018-12-15 | Outpatient (REF) | payer MEDICARE ==
[2018-12-15 15:09] LABS: BASO % 0.4 % (0.0-1.0); EOS # 0.2 10^3/uL (0.0-0.5); EOS % 2.9 % (0.0-3.0); HEMATOCRIT 41.1 % (36.0-47.0); HEMOGLOBIN 13.6 g/dl (12.0-15.5); LYMPH # 1.2 10^3/uL (1.5-5.0); LYMPH % 17.8 % (24.0-44.0); MEAN CORPUSCULAR HEMOGLOBIN 30.5 pg (27.0-33.0); MEAN CORPUSCULAR HGB CONC 33.1 g/dl (32.0-36.5); MEAN CORPUSCULAR VOLUME 92.2 fl (80.0-96.0); MONO # 0.8 10^3/uL (0.0-0.8); MONO % 11.3 % (0.0-5.0); NEUTROPHILS # 4.6 10^3/uL (1.5-8.5); NEUTROPHILS % 67.3 % (36.0-66.0); PLATELET COUNT, AUTOMATED 279 10^3/uL (150-450); RED BLOOD COUNT 4.46 10^6/uL (4.00-5.40); WHITE BLOOD COUNT 6.9 10^3/uL (4.0-10.0)
[2018-12-15 15:32] LABS: ALBUMIN 3.3 GM/DL (3.2-5.2); ALT/SGPT 22 U/L (12-78); BILIRUBIN,TOTAL 0.3 MG/DL (0.2-1.0); BLOOD UREA NITROGEN 17 MG/DL (7-18); C REACTIVE PROTEIN QUANTITATIV 9.68 MG/DL (0.00-0.30); CALCIUM LEVEL 9.3 MG/DL (8.8-10.2); CARBON DIOXIDE LEVEL 27 MEQ/L (21-32); CHLORIDE LEVEL 101 MEQ/L (98-107); CREATININE FOR GFR 0.81 MG/DL (0.55-1.30); ERYTHROCYTE SEDIMENTATION RATE 52 mm/hr (0-30); GLOMERULAR FILTRATION RATE > 60.0 (>32); GLUCOSE, FASTING 93 MG/DL (70-100); LIPASE 157 U/L (73-393); POTASSIUM SERUM 3.6 MEQ/L (3.5-5.1); SODIUM LEVEL 136 MEQ/L (136-145); TOTAL PROTEIN 6.7 GM/DL (6.4-8.2)
[2018-12-15 15:41] LABS: MONO SCRN NEGATIVE (NEGATIVE)
== END ==
LOC: M SFHCPLAZ 13:02
PROVIDERS: ATTEND Physician Assistant Medical
DX: R50.9 Fever, unspecified (principal)
CPT/HCPCS: 36415; 80053; 83605; 83690; 85025; 85652; 86140; 86308; 86480; 87804; G0463

== ENCOUNTER → 2018-12-17 | Outpatient (CLI) | payer MEDICARE ==
--- NOTE | 2018-12-17 10:50 | REP ---
Abdominal right upper quadrant ultrasound: Comparison is 03/20/2017. The patient complains of right upper quadrant abdominal pain. There is no colonic lithiasis, gallbladder wall thickening or pericholecystic fluid. There is no intrahepatic or extrahepatic biliary duct dilatation. The common biliary duct measures 3.9 mm in diameter. The hepatic parenchyma is homogeneous except for a 4 mm hypodensity in the left lobe, possibly a small hepatic cyst. The visualized areas of the pancreas are unremarkable. The right kidney is normal size measuring 9.9 x 3.5 x 3.5 cm. There is no right renal calculus, hydronephrosis, cyst or solid mass. There is no abdominal right upper quadrant free fluid. Impression: Essentially negative abdominal right upper quadrant ultrasound. A 4 mm hypodensity is incidentally identified in the hepatic left lobe, likely a small cyst. Electronically Signed by Ba Rivera MD 12/17/2018 10:42 A
== END ==
LOC: M RAD 09:27
PROVIDERS: ATTEND Physician Assistant Medical
DX: R10.11 Right upper quadrant pain (principal); R50.9 Fever, unspecified

== ENCOUNTER → 2018-12-21 | Outpatient (CLI) | payer MEDICARE ==
--- NOTE | 2018-12-21 09:55 | REP ---
Hepatobiliary scan: History: Abdomen pain. Findings: 6.6 mCi of technetium 99m mebrofenin is injected and sequential anterior abdominal images are acquired. Scintigraphic findings: The initial hepatocellular parenchymal uptake phase is normal and fairly homogeneous. No evidence of space-occupying lesion. Subsequent images demonstrate washout from the liver parenchyma into the intrahepatic bile ducts and the gallbladder is first visualized at 40 to 45 minutes. The small intestine is not labeled until 1.5 hours post injection. This is nonspecific. Impression: Mildly delayed biliary to bowel transit time. Nonspecific finding. Otherwise negative hepatobiliary scintigraphy. Electronically Signed by Salomon Meléndez MD 12/21/2018 10:01 A
== END ==
LOC: M RAD 07:14
PROVIDERS: ATTEND Physician Assistant Medical
DX: R10.11 Right upper quadrant pain (principal)
CPT/HCPCS: 78226; A9537

== ENCOUNTER → 2018-12-30 | Outpatient (CLI) | payer MEDICARE | LOC: M LAB 11:58 | PROVIDERS: ATTEND Surgery | DX: R10.11 Right upper quadrant pain (principal) ==

== ENCOUNTER → 2019-03-16 | Outpatient (CLI) | payer MEDICARE ==
[~2019-03-16] MED LIST changes: -OMEP40CA2 PO; +OMEP40CA97 PO
[2019-03-16 18:23] LABS: HEMATOCRIT 39.1 % (36.0-47.0); HEMOGLOBIN 12.3 g/dl (12.0-15.5); MEAN CORPUSCULAR HEMOGLOBIN 30.4 pg (27.0-33.0); MEAN CORPUSCULAR HGB CONC 31.5 g/dl (32.0-36.5); MEAN CORPUSCULAR VOLUME 96.5 fl (80.0-96.0); PLATELET COUNT, AUTOMATED 274 10^3/uL (150-450); RED BLOOD COUNT 4.05 10^6/uL (4.00-5.40); WHITE BLOOD COUNT 5.2 10^3/uL (4.0-10.0)
[2019-03-16 18:31] LABS: ALBUMIN 3.3 GM/DL (3.2-5.2); ALT/SGPT 20 U/L (12-78); AMYLASE 32 U/L (25-115); BILIRUBIN,TOTAL 0.4 MG/DL (0.2-1.0); BLOOD UREA NITROGEN 20 MG/DL (7-18); CALCIUM LEVEL 9.4 MG/DL (8.8-10.2); CARBON DIOXIDE LEVEL 30 MEQ/L (21-32); CHLORIDE LEVEL 107 MEQ/L (98-107); CREATININE FOR GFR 0.89 MG/DL (0.55-1.30); GLOMERULAR FILTRATION RATE > 60.0 (>32); GLUCOSE, FASTING 92 MG/DL (70-100); LIPASE 197 U/L (73-393); POTASSIUM SERUM 4.2 MEQ/L (3.5-5.1); SODIUM LEVEL 142 MEQ/L (136-145); TOTAL PROTEIN 6.3 GM/DL (6.4-8.2)
== END ==
LOC: M PLALAB 15:27
PROVIDERS: ATTEND Internal Medicine
DX: R10.13 Epigastric pain (principal)

== ENCOUNTER → 2019-03-17 | Outpatient (CLI) | payer MEDICARE ==
--- NOTE | 2019-03-17 13:57 | REP ---
MRCP: MRI abdomen without contrast: History: Right upper quadrant pain. Technique: Axial and coronal T2-weighted scans were obtained. MRCP exam is acquired and maximal intensity projection images are generated. Comparison MRI study February 12, 2018. Comparison CT study January 29, 2018. Comparison HIDA scan December 21, 2018. The main pancreatic duct and the intrahepatic bile ducts remain normal in caliber. The common bile duct is 6.5 mm, previously 7.4 mm. There is no evidence of choledocholithiasis or pancreatic or biliary mass. No filling defect is seen in the gallbladder. There are scattered subcentimeter cysts in the liver again noted unchanged. A levoconvex curvature is noted. There is a small left renal cyst. Impression: No significant change from February 12, 2018. No evidence of stricture or choledocholithiasis. 6.4 mm CBD. Electronically Signed by Salomon Meléndez MD 03/17/2019 05:51 P
== END ==
LOC: M RAD 10:55
PROVIDERS: ATTEND Internal Medicine Gastroenterology
DX: R10.11 Right upper quadrant pain (principal)

== ENCOUNTER → 2019-09-08 | Outpatient (CLI) | payer MEDICARE ==
[2019-09-08 12:33] LABS: BASO % 0.6 % (0.0-1.0); EOS # 0.1 10^3/uL (0.0-0.5); EOS % 1.2 % (0.0-3.0); HEMATOCRIT 42.5 % (36.0-47.0); HEMOGLOBIN 14.1 g/dl (12.0-15.5); LYMPH # 1.3 10^3/uL (1.5-5.0); MEAN CORPUSCULAR HEMOGLOBIN 31.1 pg (27.0-33.0); MEAN CORPUSCULAR HGB CONC 33.2 g/dl (32.0-36.5); MEAN CORPUSCULAR VOLUME 93.8 fl (80.0-96.0); MONO # 0.3 10^3/uL (0.0-0.8); MONO % 7.1 % (0.0-5.0); NEUTROPHILS # 3.1 10^3/uL (1.5-8.5); NEUTROPHILS % 64.9 % (36.0-66.0); PLATELET COUNT, AUTOMATED 294 10^3/uL (150-450); RED BLOOD COUNT 4.53 10^6/uL (4.00-5.40); WHITE BLOOD COUNT 4.8 10^3/uL (4.0-10.0)
[2019-09-08 13:14] LABS: ALBUMIN 3.7 GM/DL (3.2-5.2); ALT/SGPT 29 U/L (12-78); BILIRUBIN,TOTAL 0.4 MG/DL (0.2-1.0); BLOOD UREA NITROGEN 18 MG/DL (7-18); CALCIUM LEVEL 9.6 MG/DL (8.8-10.2); CARBON DIOXIDE LEVEL 30 MEQ/L (21-32); CHLORIDE LEVEL 107 MEQ/L (98-107); CREATININE FOR GFR 0.94 MG/DL (0.55-1.30); GLOMERULAR FILTRATION RATE > 60.0 (>32); GLUCOSE, FASTING 108 MG/DL (70-100); MAGNESIUM LEVEL 2.3 MG/DL (1.8-2.4); POTASSIUM SERUM 4.3 MEQ/L (3.5-5.1); SODIUM LEVEL 142 MEQ/L (136-145); TOTAL PROTEIN 6.8 GM/DL (6.4-8.2)
== END ==
LOC: M WUC 09:42
PROVIDERS: ATTEND Physician Assistant
DX: R00.2 Palpitations (principal)

== ENCOUNTER → 2020-01-19 | Outpatient (REF) | payer MEDICARE ==
[2020-01-19 11:16] LABS: HEMOGLOBIN 13.4 g/dl (12.0-15.5); MEAN CORPUSCULAR HEMOGLOBIN 30.5 pg (27.0-33.0); MEAN CORPUSCULAR HGB CONC 31.9 g/dl (32.0-36.5); MEAN CORPUSCULAR VOLUME 95.7 fl (80.0-96.0); PLATELET COUNT, AUTOMATED 276 10^3/uL (150-450); RED BLOOD COUNT 4.39 10^6/uL (4.00-5.40); WHITE BLOOD COUNT 5.1 10^3/uL (4.0-10.0)
[2020-01-19 11:32] LABS: ALBUMIN 3.6 GM/DL (3.2-5.2); ALT/SGPT 26 U/L (12-78); BILIRUBIN,TOTAL 0.6 MG/DL (0.2-1.0); BLOOD UREA NITROGEN 18 MG/DL (7-18); CALCIUM LEVEL 9.3 MG/DL (8.8-10.2); CARBON DIOXIDE LEVEL 28 MEQ/L (21-32); CHLORIDE LEVEL 106 MEQ/L (98-107); CHOLESTEROL LEVEL 235 MG/DL (<200); CHOLESTEROL RISK RATIO 2.764 (<5); CREATININE FOR GFR 0.87 MG/DL (0.55-1.30); GLOMERULAR FILTRATION RATE > 60.0 (>32); GLUCOSE, FASTING 95 MG/DL (70-100); HDL CHOLESTEROL 85 MG/DL (>40); LDL CHOLESTEROL 129 MG/DL (<100); NON-HDL-C 150 MG/DL; POTASSIUM SERUM 4.5 MEQ/L (3.5-5.1); SODIUM LEVEL 139 MEQ/L (136-145); TOTAL PROTEIN 6.8 GM/DL (6.4-8.2); TRIGLYCERIDES LEVEL 105 MG/DL (<150)
== END ==
LOC: M SFHCPLAZ 08:04
PROVIDERS: ATTEND Internal Medicine
DX: E03.9 Hypothyroidism, unspecified (principal); E78.00 Pure hypercholesterolemia, unspecified

== ENCOUNTER → 2020-05-10 | Outpatient (REF) | payer MEDICARE ==
[2020-05-10 16:06] LABS: APPEARANCE, URINE CLEAR (CLEAR); BACTERIA, URINE AUTO NEGATIVE (NEGATIVE); BILIRUBIN, URINE AUTO NEGATIVE (NEGATIVE); BLOOD, URINE BLOOD NEGATIVE (NEGATIVE); COLOR, URINE YELLOW (YELLOW); GLUCOSE, URINE (UA) AUTO NEGATIVE (NEGATIVE); KETONE, URINE AUTO TRACE mg/dL (NEGATIVE); LEUKOCYTE ESTERASE, URINE AUTO 1+ (NEGATIVE); MUCUS, URINE SMALL (NEGATIVE); NITRITE, URINE AUTO NEGATIVE (NEGATIVE); PROTEIN, URINE AUTO 1+ mg/dL (NEGATIVE); RBC, URINE AUTO 2 /HPF (0-3); SPECIFIC GRAVITY URINE AUTO 1.027 (1.002-1.035); SQUAMOUS EPITHELIAL CELL UR AU 0 /HPF (0-6); UROBILINOGEN, URINE AUTO 0.2 mg/dL (0.0-2.0); WBC, URINE AUTO 2 /HPF (0-3)
== END ==
LOC: M SFHCPLAZ 15:22
PROVIDERS: ATTEND Internal Medicine
DX: R30.0 Dysuria (principal)

== ENCOUNTER 2020-06-24 19:13 | Emergency (ER) | payer MEDICARE ==
[~2020-06-24] VITALS: Ht 167.6 cm; Wt 65.7 kg
[2020-06-24 20:24] LABS: BASO % 0.4 % (0.0-1.0); EOS # 0.1 10^3/uL (0.0-0.5); EOS % 1.4 % (0.0-3.0); HEMATOCRIT 41.2 % (36.0-47.0); HEMOGLOBIN 13.7 g/dl (12.0-15.5); LYMPH # 1.6 10^3/uL (1.5-5.0); LYMPH % 27.7 % (24.0-44.0); MEAN CORPUSCULAR HEMOGLOBIN 31.2 pg (27.0-33.0); MEAN CORPUSCULAR HGB CONC 33.3 g/dl (32.0-36.5); MEAN CORPUSCULAR VOLUME 93.8 fl (80.0-96.0); MONO # 0.4 10^3/uL (0.0-0.8); MONO % 7.2 % (2.0-8.0); NEUTROPHILS # 3.6 10^3/uL (1.5-8.5); NEUTROPHILS % 62.9 % (36.0-66.0); PLATELET COUNT, AUTOMATED 273 10^3/uL (150-450); RED BLOOD COUNT 4.39 10^6/uL (4.00-5.40); WHITE BLOOD COUNT 5.7 10^3/uL (4.0-10.0)
[2020-06-24 20:55] LABS: BLOOD UREA NITROGEN 20 MG/DL (7-18); CALCIUM LEVEL 8.9 MG/DL (8.8-10.2); CARBON DIOXIDE LEVEL 27 MEQ/L (21-32); CHLORIDE LEVEL 108 MEQ/L (98-107); CREATININE FOR GFR 0.84 MG/DL (0.55-1.30); GLOMERULAR FILTRATION RATE > 60.0 (>32); GLUCOSE, FASTING 105 MG/DL (70-100); SODIUM LEVEL 142 MEQ/L (136-145)
[2020-06-24 20:58] LABS: CK-MB VALUE MASS 2.1 NG/ML (<3.6); CPK CREATINE PHOSPHOKINASE 39 U/L (26-192); MB/CK RELATIVE INDEX 5.38 (< OR =4); TROPONIN I < 0.02 NG/ML (< 0.10)
[2020-06-24 21:45] VITALS: BP 140/55
--- NOTE | 2020-06-25 07:39 | ECGEPIP ---
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
== END 2020-06-24 22:07 | disposition home or self-care (01) ==
LOC: M ED 19:13
DX: I10 Essential (primary) hypertension (principal); E03.9 Hypothyroidism, unspecified; K21.9 Gastro-esophageal reflux disease without esophagitis; Z79.899 Other long term (current) drug therapy; Z79.890 Hormone replacement therapy

== ENCOUNTER → 2020-08-07 | Outpatient (REF) | payer MEDICARE ==
[2020-08-07 10:36] LABS: BASO % 0.6 % (0.0-1.0); EOS # 0.2 10^3/uL (0.0-0.5); EOS % 4.1 % (0.0-3.0); HEMATOCRIT 40.2 % (36.0-47.0); HEMOGLOBIN 13.1 g/dl (12.0-15.5); LYMPH # 1.8 10^3/uL (1.5-5.0); LYMPH % 36.1 % (24.0-44.0); MEAN CORPUSCULAR HGB CONC 32.6 g/dl (32.0-36.5); MEAN CORPUSCULAR VOLUME 95.3 fl (80.0-96.0); MONO # 0.5 10^3/uL (0.0-0.8); NEUTROPHILS # 2.4 10^3/uL (1.5-8.5); NEUTROPHILS % 48.8 % (36.0-66.0); PLATELET COUNT, AUTOMATED 257 10^3/uL (150-450); RED BLOOD COUNT 4.22 10^6/uL (4.00-5.40); WHITE BLOOD COUNT 4.9 10^3/uL (4.0-10.0)
[2020-08-07 11:19] LABS: ALBUMIN 3.5 GM/DL (3.2-5.2); ALT/SGPT 22 U/L (12-78); BILIRUBIN,TOTAL 0.3 MG/DL (0.2-1.0); BLOOD UREA NITROGEN 23 MG/DL (7-18); CALCIUM LEVEL 9.1 MG/DL (8.8-10.2); CARBON DIOXIDE LEVEL 30 MEQ/L (21-32); CHLORIDE LEVEL 107 MEQ/L (98-107); GLOMERULAR FILTRATION RATE > 60.0 (>32); GLUCOSE, FASTING 92 MG/DL (70-100); MAGNESIUM LEVEL 2.4 MG/DL (1.8-2.4); POTASSIUM SERUM 4.4 MEQ/L (3.5-5.1); SODIUM LEVEL 140 MEQ/L (136-145); TOTAL PROTEIN 6.4 GM/DL (6.4-8.2)
[2020-08-07 11:24] LABS: TOTAL 25(OH) VITAMIN D 62.4 NG/ML (30.0-100.0)
== END ==
LOC: M SFHCPLAZ 08:41
PROVIDERS: ATTEND Internal Medicine
DX: R00.2 Palpitations (principal); E78.00 Pure hypercholesterolemia, unspecified; E03.9 Hypothyroidism, unspecified; E55.9 Vitamin D deficiency, unspecified

== ENCOUNTER → 2020-08-16 | Outpatient (REF) | payer MEDICARE ==
[2020-08-16 17:42] LABS: C REACTIVE PROTEIN QUANTITATIV < 0.30 MG/DL (0.00-0.30)
[2020-08-16 17:55] LABS: FOLATE 10.9 NG/ML; VITAMIN B12 LEVEL 404 PG/ML
== END ==
LOC: M SFHCPLAZ 14:09
PROVIDERS: ATTEND Internal Medicine
DX: R53.83 Other fatigue (principal)

== ENCOUNTER → 2020-09-08 | Outpatient (CLI) | payer MEDICARE ==
--- NOTE | 2020-09-08 11:04 | REPMRS ---
Patient History The patient states she has not had a clinical breast exam in over a year. Family history of prostate cancer at age 50 or over in son. Pfizer vaccine 04/13/20 left arm 05/04/20 left arm. Patient states no breast complaints today. Patient has signed MRS History Sheet. Digital Woman Screen Mammo: September 08, 2020 - Exam #: [id number] Bilateral CC and MLO view(s) were taken. Technologist: RT Jesica Prior study comparison: September 23, 2018, bilateral digital woman screen mammo performed at [facility]. January 13, 2017, digital woman screen mammo performed at [facility]. FINDINGS: There are scattered fibroglandular densities. Screening. Digital screening (2D) mammography was performed bilaterally in the CC and MLO projections. Additionally, breast tomosynthesis (3D mammography) was performed bilaterally in the CC and MLO projections. Todays exam was compared to the prior exam/exams. By history, the patient has no complaints of a palpable breast abnormality or other significant breast complaints. The breasts are unchanged in size and shape. There are no nader-soft tissue densities or spiculated masses. There is no internal architectural distortion,Once again, stable benign appearing calcifications are seen..There are no suspicious nader-calcific clusters. Skin thickening or nipple retraction is not present. IMPRESSION: BI-RADS Category 2- Benign Findings. There is no evidence of malignant alteration of the breasts. Followup examination recommended in one year. The Volpara volumetric breast density category is B, there are scattered areas of fibroglandular density. This mammogram was read with the assistance of [employer],an FDA approved computer aided detection system for mammography. Negative x-ray reports should not delay surgical consultation if a dominant or clinically suspicious mass is present. Not all breast cancers can be identified by mammography. Therefore, we recommend that you continue to perform regular breast self-examination and physical examination and then promptly contact your physician of any concerns or changes. Adenosis and dense breasts may obscure an underlying neoplasm. Assessment: BI-RADS/ACR category 2 mammogram. Benign Findings. Recommendation Routine screening mammogram of both breasts in 1 year. Electronically Signed By: Jeffery Cuevas DO 09/08/20 1105
--- NOTE | 2020-09-08 11:11 | DEXAMM ---
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 COMPARISON: 06/12/2015 as well as other prior exams. TECHNIQUE: Bone density was measured using dual-energy x-ray absorptiometry (DEXA). FINDINGS: AP SPINE L1-L4 BMD 0.994 g/cm2 Young Adult T-Score -1.6 Age Matched Z-Score 0.3. LT FEMUR, TOTAL BMD 0.708 g/cm2 Young Adult T-Score -2.4 Age Matched Z-Score 0.0. LT NECK BMD 0.615 g/cm2 Young Adult T-Score -3.0 Age Matched Z-Score -0.6. RT FEMUR, TOTAL BMD 0.836 g/cm2 Young Adult T-Score -1.4 Age Matched Z-Score 1.0. RT NECK BMD 0.722 g/cm2 Young Adult T-Score -2.3 Age Matched Z-Score 0.2. IMPRESSION: There is low bone density of the spine. There is osteoporosis of the left hip. There is low bone density of the right hip. The density of the spine has decreased 1.5% since the initial exam on 01/14/2000. The density of the spine decreased 5.4% since most recent exam on 06/12/2015. The density of the left hip has decreased 14.3% since initial exam on 01/14/2000. The density of the left hip has decreased 8.9% since most recent exam on 06/12/2015. The density of the right hip has decreased 13.5% since the initial exam on 01/14/2000. The density of the right hip has decreased 5.3% since the most recent exam on 06/12/2015. FOLLOW-UP: Recommendation for the next bone density exam: 2 years. <Electronically signed by Ba Hampton > 09/08/20 2923
== END ==
LOC: M WHC 09:57
PROVIDERS: ATTEND Internal Medicine
DX: Z12.31 Encounter for screening mammogram for malignant neoplasm of breast (principal); Z80.42 Family history of malignant neoplasm of prostate; M81.0 Age-related osteoporosis without current pathological fracture; M85.89 Other specified disorders of bone density and structure, multiple sites

== ENCOUNTER → 2021-02-19 | Outpatient (CLI) | payer MEDICARE ==
[~2021-02-19] MED LIST changes: +OMEP40CA4 PO; -OMEP40CA97 PO
[2021-02-19 11:44] LABS: ALBUMIN 3.6 GM/DL (3.2-5.2); BILIRUBIN,TOTAL 0.4 MG/DL (0.2-1.0); CALCIUM LEVEL 9.4 MG/DL (8.8-10.2); CHOLESTEROL RISK RATIO 3.197 (<5); CREATININE FOR GFR 1.08 MG/DL (0.55-1.30); GLOMERULAR FILTRATION RATE 51.1 (>32); MAGNESIUM LEVEL 2.2 MG/DL (1.8-2.4); POTASSIUM SERUM 4.2 MEQ/L (3.5-5.1); TOTAL PROTEIN 6.5 GM/DL (6.4-8.2)
== END ==
LOC: M PLALAB 08:17
PROVIDERS: ATTEND Internal Medicine
DX: E78.00 Pure hypercholesterolemia, unspecified (principal); I10 Essential (primary) hypertension; Z11.59 Encounter for screening for other viral diseases
CPT/HCPCS: 36415; 80053; 80061; 83735; G0472

== ENCOUNTER → 2021-03-16 | Outpatient (REF) | payer MEDICARE | LOC: M SFHCPLAZ 11:45 | PROVIDERS: ATTEND Internal Medicine | DX: Z53.20 Procedure and treatment not carried out because of patient's decision for unspecified reasons (principal) ==

== ENCOUNTER → 2021-03-16 | Outpatient (CLI) | payer MEDICARE | LOC: M PLALAB 14:26 | PROVIDERS: ATTEND Internal Medicine | DX: R30.0 Dysuria (principal) ==

== ENCOUNTER → 2021-05-28 | Outpatient (CLI) | payer MEDICARE | LOC: M RAD 08:45 | PROVIDERS: ATTEND Internal Medicine | DX: R10.13 Epigastric pain (principal) ==

== ENCOUNTER → 2021-08-28 | Outpatient (CLI) | payer MEDICARE ==
[2021-08-28 14:12] LABS: BASO % 0.6 % (0.0-1.0); EOS # 0.2 10^3/uL (0.0-0.5); EOS % 3.2 % (0.0-3.0); HEMATOCRIT 38.6 % (36.0-47.0); LYMPH # 1.9 10^3/uL (1.5-5.0); MEAN CORPUSCULAR HEMOGLOBIN 32.3 pg (27.0-33.0); MEAN CORPUSCULAR HGB CONC 33.7 g/dl (32.0-36.5); MONO # 0.6 10^3/uL (0.0-0.8); MONO % 10.7 % (2.0-8.0); NEUTROPHILS # 2.7 10^3/uL (1.5-8.5); NEUTROPHILS % 50.3 % (36.0-66.0); PLATELET COUNT, AUTOMATED 276 10^3/uL (150-450); RED BLOOD COUNT 4.02 10^6/uL (4.00-5.40); WHITE BLOOD COUNT 5.3 10^3/uL (4.0-10.0)
[2021-08-28 14:43] LABS: ALBUMIN 3.7 GM/DL (3.2-5.2); BILIRUBIN,TOTAL 0.4 MG/DL (0.2-1.0); CALCIUM LEVEL 10.1 MG/DL (8.8-10.2); CHOLESTEROL RISK RATIO 2.831 (<5); CREATININE FOR GFR 1.01 MG/DL (0.55-1.30); GLOMERULAR FILTRATION RATE 55.1 (>32); MAGNESIUM LEVEL 2.3 MG/DL (1.8-2.4); POTASSIUM SERUM 4.2 MEQ/L (3.5-5.1); THYROID STIMULATING HORMONE 1.72 uIU/ML (0.358-3.740); TOTAL PROTEIN 6.6 GM/DL (6.4-8.2)
[2021-08-28 15:04] LABS: TOTAL 25(OH) VITAMIN D 92.6 NG/ML (30.0-100.0)
== END ==
LOC: M PLALAB 10:47
PROVIDERS: ATTEND Internal Medicine
DX: R10.13 Epigastric pain (principal); E03.9 Hypothyroidism, unspecified; E78.00 Pure hypercholesterolemia, unspecified; I10 Essential (primary) hypertension; E55.9 Vitamin D deficiency, unspecified; M81.0 Age-related osteoporosis without current pathological fracture

== ENCOUNTER 2021-10-07 21:33 | Observation (INO) | payer MEDICARE ==
[~2021-10-07] VITALS: Ht 167.6 cm; Wt 61.4 kg
[2021-10-07] MEDS ORDERED: LOSA50TA28 PO (22:06)
[2021-10-07] MEDS ORDERED: FAMO40TA3 PO (22:06)
[2021-10-07] MEDS ORDERED: DICY10CA13 PO (22:06)
[2021-10-07] MEDS ORDERED: ESTR0.1C5 PV (22:06)
[2021-10-07] MEDS ORDERED: MYRB50TA PO (22:06)
[2021-10-07] MEDS ORDERED: CHLO125TA PO (22:06)
[2021-10-07] MEDS ORDERED: MORPHINE 4 MG/ML 1ML VIAL/SYRINGE IV PRN (22:15)
[2021-10-07] MEDS ORDERED: ONDANSETRON 4MG 2ML VIAL IV ONE (22:15)
[2021-10-07 22:22] LABS: BASO % 0.4 % (0.0-1.0); EOS # 0.2 10^3/uL (0.0-0.5); EOS % 3.4 % (0.0-3.0); HEMATOCRIT 40.7 % (36.0-47.0); HEMOGLOBIN 13.4 g/dl (12.0-15.5); LYMPH # 2.4 10^3/uL (1.5-5.0); LYMPH % 33.2 % (24.0-44.0); MEAN CORPUSCULAR HEMOGLOBIN 31.1 pg (27.0-33.0); MEAN CORPUSCULAR HGB CONC 32.9 g/dl (32.0-36.5); MEAN CORPUSCULAR VOLUME 94.4 fl (80.0-96.0); MONO # 0.5 10^3/uL (0.0-0.8); MONO % 7.3 % (2.0-8.0); NEUTROPHILS # 3.9 10^3/uL (1.5-8.5); NEUTROPHILS % 55.3 % (36.0-66.0); PLATELET COUNT, AUTOMATED 286 10^3/uL (150-450); RED BLOOD COUNT 4.31 10^6/uL (4.00-5.40); WHITE BLOOD COUNT 7.1 10^3/uL (4.0-10.0)
[2021-10-07] MEDS ORDERED: ISOVUE-370 76% 100ML VIAL As Ordered ONE (22:26)
[2021-10-07 22:33] LABS: INR 0.92; PROTHROMBIN TIME 12.8 SECONDS (12.7-14.5)
[2021-10-07 22:48] LABS: CK-MB VALUE MASS 3.3 NG/ML (<3.6)
[2021-10-08] MEDS ORDERED: CALC600T61 PO (00:15)
[2021-10-08] MEDS ORDERED: PROL60SO SC (00:15)
[2021-10-08] MEDS ORDERED: ERGO500029 PO (00:15)
[2021-10-08] MEDS ORDERED: MAGN400T2 PO (00:15)
[2021-10-08] MEDS ORDERED: HOME MED LIST COMPLETE! XX SCH (00:20)
[2021-10-08] MEDS ORDERED: PERCOCET 5MG/325MG TAB PO PRN ×2 (00:30)
[2021-10-08] MEDS ORDERED: MAALOX 30 ML SUSP *UDC PO PRN (00:30)
[2021-10-08] MEDS ORDERED: MOM 30ML SUSPENSION UDC PO PRN (00:30)
[2021-10-08 00:43] LABS: RSV AMPLIFICATION NEGATIVE (NEGATIVE)
[2021-10-08] MEDS ORDERED: oxyCODONE 5MG TAB PO PRN (05:05)
[2021-10-08] MEDS ORDERED: NALOXONE INJ 0.4MG/1ML VIAL (J2310 PER 1MG) IV PRN (05:05)
[2021-10-08] MEDS: LEVOTHYROXINE 75MCG TABLET (0.075MG) PO SCH (05:48)
[2021-10-08] MEDS: oxyCODONE 5MG TAB PO PRN ×3 (05:49→16:27)
[2021-10-08 07:13] LABS: HEMATOCRIT 34.9 % (36.0-47.0); HEMOGLOBIN 11.7 g/dl (12.0-15.5); MEAN CORPUSCULAR HEMOGLOBIN 31.6 pg (27.0-33.0); MEAN CORPUSCULAR HGB CONC 33.5 g/dl (32.0-36.5); MEAN CORPUSCULAR VOLUME 94.3 fl (80.0-96.0); PLATELET COUNT, AUTOMATED 239 10^3/uL (150-450); WHITE BLOOD COUNT 7.1 10^3/uL (4.0-10.0)
[2021-10-08 07:34] LABS: CALCIUM LEVEL 8.8 MG/DL (8.8-10.2); CREATININE FOR GFR 1.02 MG/DL (0.55-1.30); GLOMERULAR FILTRATION RATE 54.4 (>32); POTASSIUM SERUM 3.9 MEQ/L (3.5-5.1)
[2021-10-08] MEDS ORDERED: NIRMATRELVIR/RITONAVIR (RENAL) CO-PACK (EUA) PO SCH (09:00)
[2021-10-08] MEDS: DOCUSATE SODIUM 100MG CAPSULE PO SCH ×2 (09:00→21:09)
[2021-10-08] MEDS: OMEPRAZOLE 20MG CAP PO SCH (09:00)
[2021-10-08] MEDS ORDERED: CHLORTHALIDONE 12.5MG PER 1/2 TABLET PO SCH (09:00)
[2021-10-08] MEDS: LOSARTAN 50MG TABLET PO SCH (09:00)
[2021-10-08] MEDS: LIDOCAINE 5% (LIDODERM) PATCH TD SCH (09:00)
[2021-10-08] MEDS ORDERED: **NOTE PATIENT COMMENT** MISC XX SCH (21:00)
[2021-10-08] MEDS ORDERED: FAMOTIDINE 20 MG TAB PO SCH (21:00)
[2021-10-08 22:37] VITALS: BP 115/74
[2021-10-08] MEDS: ACETAMINOPHEN TAB 650MG DOSE (2X325MG) PO PRN (22:44)
[2021-10-09] MEDS: LEVOTHYROXINE 75MCG TABLET (0.075MG) PO SCH (04:33)
[2021-10-09 06:00] VITALS: BP 120/73
[2021-10-09 06:38] LABS: HEMATOCRIT 35.9 % (36.0-47.0); HEMOGLOBIN 12.2 g/dl (12.0-15.5); MEAN CORPUSCULAR HEMOGLOBIN 31.8 pg (27.0-33.0); MEAN CORPUSCULAR VOLUME 93.5 fl (80.0-96.0); PLATELET COUNT, AUTOMATED 228 10^3/uL (150-450); RED BLOOD COUNT 3.84 10^6/uL (4.00-5.40); WHITE BLOOD COUNT 6.2 10^3/uL (4.0-10.0)
[2021-10-09 07:05] LABS: BLOOD UREA NITROGEN 16 MG/DL (7-18); CALCIUM LEVEL 8.9 MG/DL (8.8-10.2); CARBON DIOXIDE LEVEL 30 MEQ/L (21-32); CHLORIDE LEVEL 103 MEQ/L (98-107); CREATININE FOR GFR 0.84 MG/DL (0.55-1.30); GLOMERULAR FILTRATION RATE > 60.0 (>32); GLUCOSE, FASTING 107 MG/DL (70-100); POTASSIUM SERUM 3.5 MEQ/L (3.5-5.1); SODIUM LEVEL 135 MEQ/L (136-145)
[2021-10-09] MEDS: LIDOCAINE 5% (LIDODERM) PATCH TD SCH (09:46)
[2021-10-09] MEDS: OMEPRAZOLE 20MG CAP PO SCH (09:46)
[2021-10-09] MEDS: DOCUSATE SODIUM 100MG CAPSULE PO SCH (09:47)
[2021-10-09] MEDS: ACETAMINOPHEN TAB 650MG DOSE (2X325MG) PO PRN (09:47)
[2021-10-09 09:50] VITALS: BP 121/69
[2021-10-09] MEDS: LOSARTAN 50MG TABLET PO SCH (09:50)
[2021-10-09] MEDS ORDERED: ACET650T15 PO (11:09)
[2021-10-09] MEDS ORDERED: COLA100C5 PO (11:09)
[2021-10-09] MEDS ORDERED: OXYC1TAB23 PO (11:09)
[2021-10-09 11:40] VITALS: BP_SYST 122; BP_SYST 124; BP_SYST 125; BP_DIAS 69
[2021-10-09] MEDS: oxyCODONE 5MG TAB PO PRN (13:32)
== END 2021-10-09 13:45 | disposition home health service (06) ==
LOC: M ED 21:33 → M ED INP 21:34 → ENRESERV 10-08 17:44 → M MS5PR 10-08 22:35
PROVIDERS: ADMIT Internal Medicine; ATTEND Internal Medicine
DX: S22.22XA Fracture of body of sternum, initial encounter for closed fracture (principal); W10.8XXA Fall (on) (from) other stairs and steps, initial encounter; Y92.098 Other place in other non-institutional residence as the place of occurrence of the external cause; R06.02 Shortness of breath; R53.1 Weakness; I11.9 Hypertensive heart disease without heart failure; E03.9 Hypothyroidism, unspecified; K21.9 Gastro-esophageal reflux disease without esophagitis; E78.5 Hyperlipidemia, unspecified; E55.9 Vitamin D deficiency, unspecified; F34.1 Dysthymic disorder; M81.0 Age-related osteoporosis without current pathological fracture; Z86.16 Personal history of COVID-19; Z79.899 Other long term (current) drug therapy; Z79.890 Hormone replacement therapy
CPT/HCPCS: 36415; 71045; 71275; 80047; 80048; 82550; 82553; 83735; 84484; 85025; 85027; 85610; 85730; 87426; 87631; 93005; 93041; 94760; 96374; 96375; 97110; 97161; 97165; 97530; 97535; 99285; G0378; J2270; J2405; Q9967

== ENCOUNTER → 2022-03-20 | Outpatient (CLI) | payer MEDICARE ==
[~2022-03-20] MED LIST changes: +ACET650T15 PO; +CALC600T61 PO; +CHLO125TA PO; +COLA100C5 PO; +DICY10CA13 PO; +ERGO500029 PO; +ESTR0.1C5 PV; +FAMO40TA3 PO; +LOSA50TA28 PO; +MAGN400T2 PO; +MYRB50TA PO; +OXYC1TAB23 PO; +PROL60SO SC
[2022-03-20 14:10] LABS: CALCIUM LEVEL 9.6 MG/DL (8.3-10.6)
[2022-03-20 14:15] LABS: TOTAL 25(OH) VITAMIN D 55.7 NG/ML (20.0-100.0)
== END ==
LOC: M PLALAB 09:09
PROVIDERS: ATTEND Internal Medicine Endocrinology, Diabetes & Metabolism
DX: M81.0 Age-related osteoporosis without current pathological fracture (principal)

== ENCOUNTER → 2022-07-15 | Outpatient (CLI) | payer MEDICARE ==
[2022-07-15 10:46] LABS: BASO # 0.1 10^3/uL (0.0-0.2); BASO % 1.1 % (0.0-1.0); EOS # 0.2 10^3/uL (0.0-0.5); EOS % 3.8 % (0.0-3.0); HEMATOCRIT 37.3 % (36.0-47.0); HEMOGLOBIN 12.5 g/dl (12.0-15.5); LYMPH # 1.8 10^3/uL (1.5-5.0); LYMPH % 39.6 % (24.0-44.0); MEAN CORPUSCULAR HEMOGLOBIN 31.3 pg (27.0-33.0); MEAN CORPUSCULAR HGB CONC 33.5 g/dl (32.0-36.5); MEAN CORPUSCULAR VOLUME 93.5 fl (80.0-96.0); MONO # 0.4 10^3/uL (0.0-0.8); MONO % 8.8 % (2.0-8.0); NEUTROPHILS # 2.1 10^3/uL (1.5-8.5); NEUTROPHILS % 46.2 % (36.0-66.0); PLATELET COUNT, AUTOMATED 285 10^3/uL (150-450); RED BLOOD COUNT 3.99 10^6/uL (4.00-5.40); WHITE BLOOD COUNT 4.4 10^3/uL (4.0-10.0)
[2022-07-15 23:06] LABS: THYROID STIMULATING HORMONE 1.27 uIU/ML (0.55-4.78)
[2022-07-15 23:07] LABS: ALBUMIN 3.3 G/DL (3.2-5.2); BILIRUBIN,TOTAL 0.6 MG/DL (0.3-1.2); CALCIUM LEVEL 9.2 MG/DL (8.3-10.6); CHOLESTEROL RISK RATIO 2.69 (<5); CREATININE FOR GFR 1.05 MG/DL (0.55-1.30); GLOMERULAR FILTRATION RATE 52.5 (>32); HDL CHOLESTEROL 74.1 MG/DL (>40); LDL CHOLESTEROL 109.9 MG/DL (<100); NON-HDL-C 125.9 MG/DL; POTASSIUM SERUM 3.9 MMOL/L (3.5-5.1); TOTAL PROTEIN 5.9 G/DL (5.7-8.2)
[2022-07-15 23:08] LABS: TOTAL 25(OH) VITAMIN D 55.9 NG/ML (20.0-100.0)
[2022-07-15 23:09] LABS: FREE T4 1.23 NG/DL (0.89-1.76)
== END ==
LOC: M PLALAB 08:20
PROVIDERS: ATTEND Family Medicine
DX: I10 Essential (primary) hypertension (principal); E03.9 Hypothyroidism, unspecified; E55.9 Vitamin D deficiency, unspecified; E78.00 Pure hypercholesterolemia, unspecified; Z79.899 Other long term (current) drug therapy

== ENCOUNTER → 2022-07-30 | Outpatient (CLI) | payer MEDICARE ==
[2022-07-30 14:12] LABS: CALCIUM LEVEL 9.9 MG/DL (8.3-10.6); CREATININE FOR GFR 1.02 MG/DL (0.55-1.30); GLOMERULAR FILTRATION RATE 54.3 (>32); POTASSIUM SERUM 4.1 MMOL/L (3.5-5.1)
== END ==
LOC: M PLALAB 10:41
PROVIDERS: ATTEND Family Medicine
DX: N17.9 Acute kidney failure, unspecified (principal)

== ENCOUNTER → 2022-08-06 | Outpatient (CLI) | payer MEDICARE | LOC: M RAD 10:57 | PROVIDERS: ATTEND Family Medicine | DX: R10.13 Epigastric pain (principal) | CPT/HCPCS: 78264; A9541 ==

== ENCOUNTER → 2022-08-14 | Outpatient (CLI) | payer MEDICARE ==
[2022-08-14 16:23] LABS: BASO % 0.4 % (0.0-1.0); EOS # 0.1 10^3/uL (0.0-0.5); EOS % 0.9 % (0.0-3.0); HEMATOCRIT 39.9 % (36.0-47.0); HEMOGLOBIN 13.2 g/dl (12.0-15.5); LYMPH # 1.5 10^3/uL (1.5-5.0); LYMPH % 22.3 % (24.0-44.0); MEAN CORPUSCULAR HGB CONC 33.1 g/dl (32.0-36.5); MEAN CORPUSCULAR VOLUME 93.7 fl (80.0-96.0); MONO # 0.6 10^3/uL (0.0-0.8); MONO % 8.8 % (2.0-8.0); NEUTROPHILS # 4.5 10^3/uL (1.5-8.5); NEUTROPHILS % 67.5 % (36.0-66.0); PLATELET COUNT, AUTOMATED 314 10^3/uL (150-450); RED BLOOD COUNT 4.26 10^6/uL (4.00-5.40); WHITE BLOOD COUNT 6.7 10^3/uL (4.0-10.0)
[2022-08-14 16:37] LABS: CK-MB VALUE MASS 1.3 NG/ML (<3.6)
[2022-08-14 16:41] LABS: FERRITIN 49.6 NG/ML (7.3-270.7); FREE T4 1.33 NG/DL (0.89-1.76)
[2022-08-14 16:42] LABS: ALBUMIN 3.6 G/DL (3.2-5.2); ALKALINE PHOSPHATASE 39 U/L (46-116); ALT/SGPT 19 U/L (7.0-40); AST/SGOT 16 U/L (<34); BILIRUBIN,TOTAL 0.5 MG/DL (0.3-1.2); BLOOD UREA NITROGEN 32 MG/DL (9-23); C REACTIVE PROTEIN QUANTITATIV < 0.40 MG/DL (<1.0); CALCIUM LEVEL 9.4 MG/DL (8.3-10.6); CARBON DIOXIDE LEVEL 30 MMOL/L (20-31); CHLORIDE LEVEL 104 MMOL/L (98-107); GLOMERULAR FILTRATION RATE 55.6 (>32); GLUCOSE, FASTING 97 MG/DL (74-106); IRON (FE) 87 UG/DL (50-170); PERCENT SATURATION 25.3 % (13.2-45.0); POTASSIUM SERUM 3.7 MMOL/L (3.5-5.1); SODIUM LEVEL 140 MMOL/L (136-145); THYROID STIMULATING HORMONE 1.299 uIU/ML (0.55-4.78); TOTAL IRON BINDING CAPACITY 344 UG/DL (250-425); TOTAL PROTEIN 6.4 G/DL (5.7-8.2)
[2022-08-14 16:43] LABS: CPK CREATINE PHOSPHOKINASE 49 U/L (34-145); MB/CK RELATIVE INDEX 2.65 (< OR =4); VITAMIN B12 LEVEL 408 PG/ML (211-911)
[2022-08-14 16:49] LABS: ERYTHROCYTE SEDIMENTATION RATE 12 mm/hr (0-30)
== END ==
LOC: M RAD 15:26
PROVIDERS: ATTEND Family Medicine
DX: I51.7 Cardiomegaly (principal); R91.8 Other nonspecific abnormal finding of lung field; R06.02 Shortness of breath

== ENCOUNTER → 2022-08-15 | Outpatient (CLI) | payer MEDICARE ==
[~2022-08-15] MED LIST changes: +ISOVUE-370 76% 100ML VIAL As Ordered ONE
== END ==
LOC: M RAD 09:18
PROVIDERS: ATTEND Family Medicine
DX: R06.02 Shortness of breath (principal); R00.0 Tachycardia, unspecified; J98.11 Atelectasis; I25.10 Atherosclerotic heart disease of native coronary artery without angina pectoris; K76.89 Other specified diseases of liver; M47.9 Spondylosis, unspecified; M19.011 Primary osteoarthritis, right shoulder; M19.012 Primary osteoarthritis, left shoulder; Z87.81 Personal history of (healed) traumatic fracture
CPT/HCPCS: 71275; Q9967

== ENCOUNTER → 2022-08-19 | Outpatient (CLI) | payer MEDICARE ==
[~2022-08-19] MED LIST changes: -ISOVUE-370 76% 100ML VIAL As Ordered ONE
== END ==
LOC: M CARPUL 11:08
PROVIDERS: ATTEND Family Medicine
DX: R06.02 Shortness of breath (principal); R00.0 Tachycardia, unspecified; I51.7 Cardiomegaly

== ENCOUNTER → 2022-09-26 | Outpatient (CLI) | payer MEDICARE | LOC: M PLALAB 09:54 | PROVIDERS: ATTEND Internal Medicine Endocrinology, Diabetes & Metabolism | DX: M81.0 Age-related osteoporosis without current pathological fracture (principal) ==

== ENCOUNTER → 2022-12-18 | Outpatient (CLI) | payer MEDICARE ==
[~2022-12-18] MED LIST changes: +DICY-61 PO; -DICY10CA13 PO
[2022-12-18 16:13] LABS: BASO % 0.7 % (0.0-1.0); EOS # 0.2 10^3/uL (0.0-0.5); EOS % 2.7 % (0.0-3.0); HEMATOCRIT 38.5 % (36.0-47.0); HEMOGLOBIN 12.6 g/dl (12.0-15.5); LYMPH # 1.5 10^3/uL (1.5-5.0); LYMPH % 26.1 % (24.0-44.0); MEAN CORPUSCULAR HGB CONC 32.7 g/dl (32.0-36.5); MEAN CORPUSCULAR VOLUME 94.6 fl (80.0-96.0); MONO # 0.5 10^3/uL (0.0-0.8); NEUTROPHILS # 3.4 10^3/uL (1.5-8.5); NEUTROPHILS % 61.1 % (36.0-66.0); PLATELET COUNT, AUTOMATED 296 10^3/uL (150-450); RED BLOOD COUNT 4.07 10^6/uL (4.00-5.40); WHITE BLOOD COUNT 5.6 10^3/uL (4.0-10.0)
[2022-12-18 16:36] LABS: FERRITIN 73.1 NG/ML (7.3-270.7)
[2022-12-18 16:38] LABS: ALBUMIN 3.4 G/DL (3.2-5.2); BILIRUBIN,TOTAL 0.4 MG/DL (0.3-1.2); CALCIUM LEVEL 9.1 MG/DL (8.3-10.6); CREATININE FOR GFR 1.02 MG/DL (0.55-1.30); GLOMERULAR FILTRATION RATE 54.3 (>32); PERCENT SATURATION 15.6 % (13.2-45.0); POTASSIUM SERUM 3.4 MMOL/L (3.5-5.1); TOTAL PROTEIN 6.1 G/DL (5.7-8.2)
== END ==
LOC: M PLALAB 14:01
PROVIDERS: ATTEND Family Medicine
DX: R10.13 Epigastric pain (principal); K92.1 Melena

== ENCOUNTER 2023-02-07 05:42 | Emergency (ER) | payer MEDICARE ==
[~2023-02-07] VITALS: Ht 162.6 cm; Wt 60.1 kg
[2023-02-07 06:33] LABS: BASO % 0.5 % (0.0-1.0); EOS # 0.2 10^3/uL (0.0-0.5); EOS % 2.6 % (0.0-3.0); HEMATOCRIT 37.5 % (36.0-47.0); HEMOGLOBIN 12.7 g/dl (12.0-15.5); LYMPH % 30.4 % (24.0-44.0); MEAN CORPUSCULAR HEMOGLOBIN 31.4 pg (27.0-33.0); MEAN CORPUSCULAR HGB CONC 33.9 g/dl (32.0-36.5); MEAN CORPUSCULAR VOLUME 92.8 fl (80.0-96.0); MONO # 0.6 10^3/uL (0.0-0.8); MONO % 9.1 % (2.0-8.0); NEUTROPHILS # 3.8 10^3/uL (1.5-8.5); NEUTROPHILS % 57.1 % (36.0-66.0); PLATELET COUNT, AUTOMATED 283 10^3/uL (150-450); RED BLOOD COUNT 4.04 10^6/uL (4.00-5.40); WHITE BLOOD COUNT 6.6 10^3/uL (4.0-10.0)
[2023-02-07 06:54] LABS: CK-MB VALUE MASS 1.2 NG/ML (<3.6)
[2023-02-07 06:56] LABS: CALCIUM LEVEL 9.6 MG/DL (8.3-10.6); CREATININE FOR GFR 0.99 MG/DL (0.55-1.30); GLOMERULAR FILTRATION RATE 56.2 (>32); POTASSIUM SERUM 3.1 MMOL/L (3.5-5.1)
[2023-02-07 07:03] LABS: MB/CK RELATIVE INDEX 3.42 (< OR =4)
[2023-02-07 08:02] LABS: MB/CK RELATIVE INDEX 6.45 (< OR =4)
[2023-02-07] MEDS ORDERED: POTASSIUM CHLORIDE 10MEQ SR TABLET PO ONE (08:15)
[2023-02-07] MEDS ORDERED: POTA-298 PO (08:21)
[2023-02-07 08:30] VITALS: BP 148/67
[2023-02-07 08:31] VITALS: TEMP 98; O2SAT 98
== END 2023-02-07 08:45 | disposition home or self-care (01) ==
LOC: M ED 05:42
DX: R07.89 Other chest pain (principal); I10 Essential (primary) hypertension; K21.9 Gastro-esophageal reflux disease without esophagitis; E03.9 Hypothyroidism, unspecified; Z82.49 Family history of ischemic heart disease and other diseases of the circulatory system; Z79.899 Other long term (current) drug therapy